=== PATIENT | female | born 1990 | race African-American/Black ===

== ENCOUNTER 2024-01-19 17:33 | Emergency (ER) | payer BC, SELFPAY ==
[2024-01-19 18:12] VITALS: BP 120/83; PULSE 99; RESP 16; TEMP 36.3; O2SAT 100
--- NOTE | 2024-01-19 18:15 | ED.ABDPAIN ---
HPI - Abdominal Pain General Chief Complaint: Abdominal Pain Stated Complaint: abdominal pain Focused HPI: GENERAL: Well-appearing, well-nourished, and in no acute distress. HEAD: Normocephalic, atraumatic. CHEST: Clear to auscultation. No respiratory distress. HEART: Regular rate and rhythm. NEURO: Alert and oriented x3. Patient screened in triage and initial orders placed. Additional care and disposition to be based upon diagnostic testing and treatment. 33-year-old female who is 10 weeks , , IVF patient of Dr. Berumen presents to the emergency room via EMS for evaluation of acute onset of cough of periumbilical belly pain. Denies any vaginal bleeding. States the pain is sharp cramping sensation. States the pain is changing locations within the abdomen. States will be around aggravates the pain. Denies any nausea vomiting diarrhea or constipation. Currently taking vitamins and progesterone IM injections daily. Denies fevers. Has had recent ultrasound which showed normal growth and subchorionic hemorrhage Related Data Home Medications Medication Instructions Recorded Confirmed dorzolamide 2 % eye drops drp EACH EYE 03/29/23 01/17/24 doxylamine succinate 25 mg tablet 25 mg PO QHS PRN 01/17/24 01/17/24 (Unisom (doxylamine)) progesterone 50 mg/mL 5 mg IM DAILY 01/17/24 01/17/24 intramuscular oil pyridoxine (vitamin B6) 10 mg 10 mg PO DAILY 01/17/24 01/17/24 tablet Allergies Allergy/AdvReac Type Severity Reaction Status Date / Time No Known Allergies Allergy Verified 01/17/24 10:10 [facility] Past Medical History Medical History (Updated 02/08/24 @ 09:41 by Haroldo Sellers, CARMEN) Abnormal Pap smear of cervix Suppression of menses Vision impairment Surgical History Surgical History H/O breast augmentation Hx of cholecystectomy Social History Social History Smoking status: Never smoker Alcohol intake: current Alcohol use details: occasional Substance use: never Lack of Transportation: No Lack of Food: Never True Current Housing: I Have Housing Concerned About Future Housing: No Difficulty Paying Gas/Electric Bills: No Difficulty Paying for Meds: No Currently Unemployed: No Education: High School Diploma/GED Difficulty w/ Childcare or Family Care: No Living arrangements: with family Occupation/Education: unemployed Gender identity (if verbalized by the patient): Female Sexual Orientation (if Verbalized by the Patient): Straight or Heterosexual Course Vital Signs Vital signs: Vital Signs Temperature 36.3 C L 01/19/24 18:12 Pulse Rate 99 01/19/24 18:12 Respiratory Rate 16 01/19/24 18:12 Blood Pressure 120/83 01/19/24 18:12 Pulse Oximetry 100 01/19/24 18:12 Oxygen Delivery Room Air 01/19/24 18:12 Temperature 36.3 C L 01/19/24 18:12 Pulse Rate 99 01/19/24 18:12 Respiratory Rate 16 01/19/24 18:12 Blood Pressure 120/83 01/19/24 18:12 Pulse Oximetry 100 01/19/24 18:12 Oxygen Delivery Room Air 01/19/24 18:12 Discharge Plan Discharge Clinical Impression: Abdominal pain affecting Patient Disposition: Elopement After Seen by Prov Condition: Stable Instructions: Antibiotic Form Prescriptions: No Action dorzolamide 2 % drops EACH EYE progesterone 50 mg/mL oil 5 mg IM DAILY Unisom (doxylamine) 25 mg tablet 25 mg PO QHS PRN pyridoxine (vitamin B6) 10 mg tablet 10 mg PO DAILY metoclopramide HCl [Reglan] 5 mg tablet 5 mg PO DAILY Qty: 30 1RF Classic 28 mg iron- 800 mcg tablet 1 tablet PO DAILY Qty: 90 3RF Follow-up/Referrals: UNKNOWN,DOCTOR [Non-Staff] - Time of Disposition: 09:41
--- NOTE | 2024-01-19 20:00 | PC.NURSE ---
Pt came to triage desk requesting to get IV out and leave hospital. Pts IV pulled and pt educated on risks of leaving. Pt ambulated out of ed with steady gait displaying no signs of current discomfort or distress.
== END 2024-01-19 21:09 | disposition left against medical advice (07) ==
LOC: ANHED 20:55
PROVIDERS: Emergency Provider Nurse Practitioner Family
DX: O26.891 Other specified pregnancy related conditions, first trimester (principal); R10.33 Periumbilical pain; Z3A.10 10 weeks gestation of pregnancy; Z90.49 Acquired absence of other specified parts of digestive tract
CPT/HCPCS: 99281

== ENCOUNTER 2024-04-06 12:40 | Observation (INO) | payer BC, SELFPAY ==
[2024-04-06 13:06] VITALS: BP 106/61; PULSE 92
[2024-04-06 13:30] VITALS: BP 95/51; PULSE 92
[2024-04-06 13:37] LABS: Appearance Urine Cloudy (Clear); Bacteria Urine None Seen /hpf; Bilirubin Urine Negative (Negative); Blood Urine Negative (Negative); Color Urine Yellow (Yellow); Glucose Urine UA Negative (Negative); Ketones Urine Negative (Negative); Leukocyte Esterase Ur 1+ LEU/UL (Negative); Need Manual Microscopic Reviewed; Nitrate Urine Negative (Negative); Non Pathogenic Casts 0-2; Protein Urine Negative (Negative); RBC Urine 0-2 /hpf (0-2); Specific Grav Ur 1.018 (1.001-1.035); Squamous Epithelial Cell Urine Occasional /hpf (Few); WBC Urine 0-5 /hpf (0-3); pH Urine 7.5 (5.0-9.0)
[2024-04-06 13:47] LABS: Add Urine Microscopic? YES
--- NOTE | 2024-04-06 13:54 | OBADM ---
This patient, Luana Winters, admitted to the OB room OB Post 115 for observation. Patient/family oriented to hospital policies and general routines including ID bracelet, bed and alarms, visiting hours, pain management, procedures, bathroom and other care routines, personal items, smoking policy, room service/diet, and visiting hours. Patient/Family are encouraged to report perceived risks to care and to ask questions if they do not understand what they are told or what they should do.
[2024-04-06 14:09] LABS: Basophils Percent Auto 0.3 % (0.2-1.2); Eosinophils Percent Auto 0.4 % (0-4.4); Hematocrit 31.4 % (37.0-47.0); Hemoglobin 10.3 g/dL (12.0-15.0); Immature Granulocyte Absolute 0.03 K/mm3 (0.00-0.031); Immature Granulocyte Percent A 0.4 % (0-0.5); Lymphocytes Absolute Auto 1.26 K/mm3 (0.9-3.2); Lymphocytes Percent Auto 17.5 % (18.3-44.2); Mean Corpuscular HGB Conc 32.8 g/dl (32-36); Mean Corpuscular Hemoglobin 27.3 pg (26-34); Mean Corpuscular Volume 83.3 fl (80-100); Mean Platelet Volume 9.6 fl (7.4-10.4); Monocytes Absolute Auto 0.6 K/mm3 (0.1-0.6); Monocytes Percent Auto 7.8 % (2.6-8.5); Neutrophils Absolute Auto 5.3 K/mm3 (1.3-6.7); Neutrophils Percent Auto 73.6 % (45.5-73.1); Platelet Count Result 274 k/mm3 (150-375); Red Blood Count 3.77 M/mm3 (4.2-5.4); White Blood Count 7.2 K/mm3 (4.5-10.0)
[2024-04-06] MEDS: LACTATED RINGERS 1,000 ML 999 ML IV CONT (14:10)
--- NOTE | 2024-04-06 14:11 | PC.NURSE ---
Dr. Lynne performed bedside speculum exam. No discharge, cervix closed, thick and high. Order for labs and IV fluids received.
[2024-04-06 14:22] LABS: Alanine Aminotransferase 14 U/L (6-35); Alkaline Phosphatase 48 U/L (38-126); Anion Gap 5 mmol/L (4-12); Aspartate Amino Transferase 28 U/L (14-36); Bilirubin,Total 0.8 mg/dL (0.2-1.3); Blood Urea Nitrogen 8 mg/dL (7-17); Calcium 9.3 mg/dL (8.4-10.2); Carbon Dioxide 23 mmol/L (22-30); Chloride 109 mmol/L (98-107); Estimated Glomerular Filt Rate > 60; Glucose 78 mg/dL (65-110); Potassium 4.1 mmol/L (3.4-5.0); Sodium 137 mmol/L (137-145)
[2024-04-06 14:30] VITALS: BP 104/63; PULSE 94
[2024-04-06 15:00] VITALS: BP 118/59; PULSE 91
--- NOTE | 2024-04-09 11:54 | P.PNOB_ITS ---
OB - Triage/Final Diagnosis Visit Information Comments/Additional reasons for admission: I have assessed the risk for this patient, Luana Winters, and determined that she would benefit from observation care. Evaluation Laboratory results: Laboratory Tests 04/06/24 04/06/24 13:20 14:05 WBC 7.2 RBC 3.77 L Hgb 10.3 L Hct 31.4 L MCV 83.3 MCH 27.3 MCHC 32.8 RDW 13.0 Plt Count 274 MPV 9.6 Immature Gran % (Auto) 0.4 Neut % (Auto) 73.6 H Lymph % (Auto) 17.5 L [place] % (Auto) 7.8 Eos % (Auto) 0.4 Baso % (Auto) 0.3 Lymph # (Auto) 1.26 [place] # (Auto) 0.6 Eos # (Auto) 0.0 Baso # (Auto) 0.0 Abs Immat Gran (auto) 0.03 Absolute Neuts (auto) 5.3 Absolute Nucleated RBC 0.000 Nucleated RBC % 0.0 Sodium 137 Potassium 4.1 Chloride 109 H Carbon Dioxide 23 Anion Gap 5 BUN 8 Creatinine 0.60 L Estim Creat Clear Calc Not Reportable Estimated GFR > 60 Glucose 78 Calcium 9.3 Total Bilirubin 0.8 AST 28 ALT 14 Alkaline Phosphatase 48 Total Protein 7.0 Albumin 4.0 Urine Color Yellow Urine Appearance Cloudy H Urine pH 7.5 Ur Specific [place] 1.018 Urine Protein Negative Urine Glucose (UA) Negative Urine Ketones Negative Ur Blood (Man) Negative Urine Nitrate Negative Urine Bilirubin Negative Urine Urobilinogen 2.0 H Add Ur Microanalysis Reviewed Leukocyte Esterase Rfl 1+ H Urine RBC 0-2 Urine WBC 0-5 Ur Squamous Epith Cells Occasional Urine Bacteria None seen Urine Casts 0-2 Final Diagnosis (1) contractions: Code(s): O47.00 - False labor before 37 completed weeks of gestation, unspecified tri mester Status: Acute
== END 2024-04-06 17:00 | disposition home or self-care (01) ==
PROVIDERS: Admitting Provider Obstetrics & Gynecology; Visit Provider Obstetrics & Gynecology
DX: O47.02 False labor before 37 completed weeks of gestation, second trimester (principal); Z3A.21 21 weeks gestation of pregnancy
CPT/HCPCS: 36415; 80053; 81001; 85025; G0378; G0379; J7120

== ENCOUNTER 2024-05-21 09:54 | Outpatient (CLI) | payer MEDICARE, BC, SELFPAY ==
[2024-05-21 11:22] LABS: Hematocrit 28.7 % (37.0-47.0); Hemoglobin 8.7 g/dL (12.0-15.0); Mean Corpuscular HGB Conc 30.3 g/dl (32-36); Mean Corpuscular Hemoglobin 26.1 pg (26-34); Mean Corpuscular Volume 86.2 fl (80-100); Mean Platelet Volume 9.4 fl (7.4-10.4); Platelet Count Result 242 k/mm3 (150-375); Red Blood Count 3.33 M/mm3 (4.2-5.4); Red Cell Distribution Width 12.7 % (11.5-14.5); White Blood Count 6.8 K/mm3 (4.5-10.0)
[2024-05-21 11:37] LABS: Glucose 1 Hour PP 50gm Dose 113 mg/dL
[2024-05-21 12:16] LABS: HIV 1/2 Ab P24 Ag Result Negative (Negative)
[2024-05-21 13:24] LABS: Rapid Plasma Reagin Non-Reactive (NonReactive)
== END 2024-05-21 09:55 | disposition home or self-care (01) ==
LOC: ANHLAB 09:57
PROVIDERS: Visit Provider Student in an Organized Health Care Education/Training Program
DX: Z34.90 Encounter for supervision of normal pregnancy, unspecified, unspecified trimester (principal); Z3A.00 Weeks of gestation of pregnancy not specified
CPT/HCPCS: 36415; 82947; 85027; 86592; 86703; G0432

== ENCOUNTER 2024-05-22 18:04 | Observation (INO) | payer BC, SELFPAY ==
[2024-05-22] VITALS (40 sets, daily range): BP systolic 97–141; BP diastolic 60–69; PULSE 76–104; TEMP 36.8; O2SAT 99–100; BMI 24.7
--- NOTE | 2024-05-22 18:04 | PC.NURSE ---
Pt arrives to unit with contractions.
--- NOTE | 2024-05-22 18:24 | OBADM ---
This patient, Luana Winters, admitted to the OB room OB Post 116 for observation. Patient/family oriented to hospital policies and general routines including ID bracelet, bed and alarms, visiting hours, pain management, procedures, bathroom and other care routines, personal items, smoking policy, room service/diet, and visiting hours. Patient/Family are encouraged to report perceived risks to care and to ask questions if they do not understand what they are told or what they should do.
--- NOTE | 2024-05-22 19:29 | PC.NURSE ---
Dr. Villalobos called, update on pt, contractions every two to four minutes, uterine irritability, and pain of 10. Orders received to start an IV, administer LR bolus 1 liter, terbutaline 0.25 mg as needed up to three doses, and perform cervical exam.
--- NOTE | 2024-05-22 19:55 | PC.NURSE ---
Called Dr. Villalobos, update on low lying placenta and pelvic rest. Orders received to not perform cervical exam.
[2024-05-22] MEDS: TERBUTALINE SULFATE 1 MG/ML VIAL 0.25 MG SUB-Q (19:56)
[2024-05-22] MEDS: LACTATED RINGERS 1,000 ML 999 ML IV CONT (19:57)
--- NOTE | 2024-05-22 20:43 | PC.NURSE ---
Dr. Villalobos called, update on two contractions in the hour after one dose of terbutaline and LR bolus. Orders received to discharge pt with instructions to call Dr. Bhagat's office tomorrow, keep next scheduled appointment, and when to return to the unit.
--- NOTE | 2024-05-22 21:23 | PC.NURSE ---
Pt discharged with instructions to call Dr. Bhagat's office tomorrow, keep next scheduled appointment, and when to return to the unit with pre-term labor precautions, pt verbalizes understanding.
--- NOTE | 2024-05-23 10:42 | PM.OBTRLD ---
OB - Triage/Final Diagnosis Visit Information Reason for evaluation: threatened labor Comments/Additional reasons for admission: I have assessed the risk for this patient, Luana Winters, and determined that she would benefit from observation care. Evaluation Vital signs: Vital Signs - 24 hr 05/22/24 18:16 05/22/24 18:21 05/22/24 18:26 Temperature Pulse Rate Blood Pressure Blood Pressure [Left Arm] Pulse Oximetry 100 100 100 Oxygen Delivery 05/22/24 18:31 05/22/24 18:36 05/22/24 18:42 Temperature Pulse Rate 93 Blood Pressure 97/60 L Blood Pressure [Left Arm] Pulse Oximetry 100 100 100 Oxygen Delivery 05/22/24 18:47 05/22/24 18:52 05/22/24 18:57 Temperature Pulse Rate Blood Pressure Blood Pressure [Left Arm] Pulse Oximetry 100 100 100 Oxygen Delivery 05/22/24 19:00 05/22/24 19:02 05/22/24 19:07 Temperature Pulse Rate 86 Blood Pressure 103/67 Blood Pressure [Left Arm] Pulse Oximetry 100 100 Oxygen Delivery 05/22/24 19:12 05/22/24 19:17 05/22/24 19:22 Temperature Pulse Rate Blood Pressure Blood Pressure [Left Arm] Pulse Oximetry 100 100 100 Oxygen Delivery 05/22/24 19:27 05/22/24 19:30 05/22/24 19:31 Temperature Pulse Rate 87 Blood Pressure 102/62 Blood Pressure [Left Arm] Pulse Oximetry 100 100 Oxygen Delivery 05/22/24 19:36 05/22/24 19:37 05/22/24 19:38 Temperature Pulse Rate Blood Pressure Blood Pressure [Left Arm] Pulse Oximetry 100 100 100 Oxygen Delivery 05/22/24 19:43 05/22/24 19:51 05/22/24 19:56 Temperature Pulse Rate Blood Pressure Blood Pressure [Left Arm] Pulse Oximetry 100 100 100 Oxygen Delivery 05/22/24 20:00 05/22/24 20:01 05/22/24 20:05 Temperature Pulse Rate 93 Blood Pressure 141/69 H Blood Pressure [Left Arm] Pulse Oximetry 100 100 Oxygen Delivery 05/22/24 20:10 05/22/24 20:15 05/22/24 20:20 Temperature Pulse Rate Blood Pressure Blood Pressure [Left Arm] Pulse Oximetry 100 100 100 Oxygen Delivery 05/22/24 20:25 05/22/24 20:30 05/22/24 20:35 Temperature Pulse Rate Blood Pressure Blood Pressure [Left Arm] Pulse Oximetry 100 100 99 Oxygen Delivery 05/22/24 20:36 05/22/24 20:36 05/22/24 20:41 Temperature Pulse Rate Blood Pressure Blood Pressure [Left Arm] Pulse Oximetry 100 100 100 Oxygen Delivery 05/22/24 20:46 05/22/24 20:51 05/22/24 20:56 Temperature Pulse Rate Blood Pressure Blood Pressure [Left Arm] Pulse Oximetry 100 100 100 Oxygen Delivery 05/22/24 20:53 05/22/24 18:21 05/22/24 20:59 Temperature 98.3 F Pulse Rate 94 Blood Pressure Blood Pressure [Left Arm] 97/60 L Pulse Oximetry Oxygen Delivery Room Air
== END 2024-05-22 21:23 | disposition home or self-care (01) ==
PROVIDERS: Admitting Provider Obstetrics & Gynecology; Visit Provider Obstetrics & Gynecology
DX: O47.9 False labor, unspecified (principal)
CPT/HCPCS: 59025; 96360; 96372; G0378; G0379; J3105; J7120

== ENCOUNTER 2024-06-07 09:01 | Outpatient (CLI) | payer BC, SELFPAY ==
--- NOTE | ~2024-06-07 | US_ITS ---
EXAMINATION: US OB follow up DATE: 06/07/2024 09:20 INDICATION: Encounter for supervision of normal . TECHNIQUE: Real-time ultrasound of the pelvis was performed. COMPARISON: Ultrasound 04/25/2024, 03/28/2024 FINDINGS: There is a single living fetus in breech presentation. The placenta is posterior, 4.5 cm from the ce rvix. The cervical length is 4.8 cm on transabdominal images, which is normal. heart rate is 12 7 beats per minute (bpm). The amniotic fluid index is 16.2 cm, which is normal. The following biometric data were obtained: Biparietal diameter (BPD): 8.2 cm; head circumference (HC): 29.0 cm; abdominal circumference (AC): 27 .4 cm; femur length (FL): 6.0 cm. These measurements are concordant. Estimated weight is 1790 g +/- 269 g, which correlates with the 81st percentile when 08/14/24 i s used as estimated date of delivery. As single measurements, these parameters are each equal to the following estimated gestational ages: BPD: 32 weeks 6 days. HC: 31 weeks 6 days. AC: 31 weeks 4 days. FL: 31 weeks 1 days. estimated gestational age based solely on measurements from this exam is 31 weeks 6 days +/- 2 weeks 2 days. IMPRESSION: 1. Single living fetus in breech presentation. 2. Estimated weight is 1790 g +/- 269 g, which correlates with the 81st percentile when is used as estimated date of delivery. Reviewed, dictated and finalized at location A. IMPRESSION: 1. Single living fetus in breech presentation. 2. Estimated weight is 1790 g +/- 269 g, which correlates with the 81st percentile when 08/14/24 is used as estimated date of delivery.
== END 2024-06-07 09:02 | disposition home or self-care (01) ==
LOC: GOSHIMG 09:02
PROVIDERS: PCP Student in an Organized Health Care Education/Training Program; Visit Provider Student in an Organized Health Care Education/Training Program
DX: Z34.93 Encounter for supervision of normal pregnancy, unspecified, third trimester (principal); Z3A.31 31 weeks gestation of pregnancy
CPT/HCPCS: 76816

== ENCOUNTER 2024-07-09 16:14 | Observation (INO) | payer MEDICARE, BC, SELFPAY ==
[2024-07-09 16:30] VITALS: BMI 26.3
--- NOTE | 2024-07-09 16:30 | OBADM ---
This patient, Luana Winters, admitted to the OB room OB Post 113 for observation. Patient/family oriented to hospital policies and general routines including ID bracelet, bed and alarms, visiting hours, pain management, procedures, bathroom and other care routines, personal items, smoking policy, room service/diet, and visiting hours. Patient/Family are encouraged to report perceived risks to care and to ask questions if they do not understand what they are told or what they should do.
[2024-07-09 16:45] VITALS: BP 96/45; PULSE 89
[2024-07-09 17:00] VITALS: BP 105/67; PULSE 87
[2024-07-09 17:52] LABS: Add Urine Microscopic? YES; Appearance Urine Cloudy (Clear); Bacteria Urine None Seen /hpf; Bilirubin Urine Negative (Negative); Blood Urine Negative (Negative); Color Urine Yellow (Yellow); Glucose Urine UA Negative (Negative); Ketones Urine Negative (Negative); Leukocyte Esterase Ur Negative LEU/UL (Negative); Need Manual Microscopic Reviewed; Nitrate Urine Negative (Negative); Non Pathogenic Casts 0-2; Protein Urine Negative (Negative); RBC Urine 0-2 /hpf (0-2); Specific Grav Ur 1.013 (1.001-1.035); Squamous Epithelial Cell Urine None Seen /hpf (Few); WBC Urine 0-5 /hpf (0-3)
--- NOTE | 2024-07-09 17:55 | PC.NURSE ---
Dr Lynne notified of SVE and US results. OK to al home.
--- NOTE | 2024-07-10 08:06 | PM.OBTRLD ---
OB - Triage/Final Diagnosis Visit Information Comments/Additional reasons for admission: I have assessed the risk for this patient, Luana Winters, and determined that she would benefit from observation care. Evaluation Laboratory results: Laboratory Tests 07/09/24 17:14 Urine Color Yellow Urine Appearance Cloudy H Urine pH 7.0 Ur Specific [place] 1.013 Urine Protein Negative Urine Glucose (UA) Negative Urine Ketones Negative Ur Blood (Man) Negative Urine Nitrate Negative Urine Bilirubin Negative Urine Urobilinogen 1.0 Ur Leukocyte Esterase Negative Add Ur Microanalysis Reviewed Urine RBC 0-2 Urine WBC 0-5 Ur Squamous Epith Cells None seen Urine Bacteria None seen Urine Casts 0-2 Vital signs: Vital Signs - 24 hr 07/09/24 16:45 07/09/24 17:00 Pulse Rate 89 87 Blood Pressure 96/45 L 105/67 Final Diagnosis (1) Vaginal discharge during : Code(s): O26.899 - Other specified related conditions, unspecified trimester; N89.8 - Other specified noninflammatory disorders of vagina Status: Acute
== END 2024-07-09 18:07 | disposition home or self-care (01) ==
PROVIDERS: Admitting Provider Obstetrics & Gynecology; Visit Provider Obstetrics & Gynecology
DX: O26.893 Other specified pregnancy related conditions, third trimester (principal); N89.8 Other specified noninflammatory disorders of vagina; Z3A.35 35 weeks gestation of pregnancy
CPT/HCPCS: 81001; 87086; 87088; G0378; G0379

== ENCOUNTER 2024-07-23 11:38 | Outpatient (CLI) | payer BC, SELFPAY ==
--- NOTE | ~2024-07-23 | US_ITS ---
EXAMINATION: US OB follow up DATE: 07/23/2024 12:05 INDICATION: Encounter for supervision of normal TECHNIQUE: Real-time ultrasound of the pelvis was performed. The interpreting radiologist was not pre sent for the study. COMPARISON: 06/07/2024 FINDINGS: There is a single living fetus in vertex presentation. The placenta is posterior fundal and not low- lying. heart rate is 124 beats per minute (bpm). The amniotic fluid index is 10.5 cm, which is normal (5th%-95%: 7.7-24.9 cm at 36 weeks estimated gestational age). The following biometric data were obtained: BPD: 9.1 cm -> 36 weeks 5 days Head circumference: 31. cm -> 936 weeks 0 days Abdominal circumference: 33.0 cm -> 36 weeks 6 days Femur length: 7.1 cm -> 36 weeks 1 days These measurements are concordant. Head circumference to abdominal circumference ratio: 0.97 (normal range 0.92-1.07). Estimated weight: 2981 g (+/-) 447 g or 6 lbs. 9 oz. (+/-) 1 lb. 0 oz. IMPRESSION: 1. Single living fetus in vertex presentation with heart rate of 124 bpm. 2. Normal amniotic fluid index of 10.5 cm. 3. Estimated weight is 48th percentile by Hadlock criteria when 08/14/2024 is used as the estim ated date of delivery (DANIELLA). Please correlate with clinical information or earlier ultrasounds for mo st accurate DANIELLA. Reviewed, dictated and finalized at location A. IMPRESSION: 1. Single living fetus in vertex presentation with heart rate of 124 bpm. 2. Normal amniotic fluid index of 10.5 cm. 3. Estimated weight is 48th percentile by Hadlock criteria when 4 is used as the estimated date of delivery (DANIELLA). Please correlate with clinic al information or earlier ultrasounds for most accurate DANIELLA.
== END 2024-07-23 11:39 | disposition home or self-care (01) ==
PROVIDERS: PCP Student in an Organized Health Care Education/Training Program; Visit Provider Student in an Organized Health Care Education/Training Program
DX: Z34.90 Encounter for supervision of normal pregnancy, unspecified, unspecified trimester (principal); Z3A.00 Weeks of gestation of pregnancy not specified
CPT/HCPCS: 76816

== ENCOUNTER 2024-07-23 12:30 | Outpatient (RCR) | payer BC, SELFPAY ==
--- NOTE | 2024-05-21 13:14 | OPREHPOC ---
Outpatient Therapy Plan of Care This is a Multidisciplinary Plan of Care that may contain components documented by all disciplines (PT, OT, and ST.) PT Problem 1 PT Problem #1 Knowledge Deficit PT Goal 1 Goal / Goal Update 1. Patient will perform independent HEP Target Visit 3 PT Problem 2 PT Problem #2 Pain PT Goal 1 Goal / Goal Update 1. Patient able to stand to clean with pain no higher than 3/10 Target Visit 8 PT Problem 3 PT Problem #3 Impaired Strength PT Goal 1 Goal / Goal Update 1. Improve hip abduction to 5/5 jim Target Visit 8 PT Problem 4 PT Problem #4 Impaired Flexibility PT Goal 1 Goal / Goal Update 1. No positive lumbar neural tension signs Target Visit 8
--- NOTE | 2024-05-21 13:14 | PTOPEVAL1 ---
Assessment and note entered by Margarita Shaw DPT Evaluation Information Assessment Status Evaluation ICD-10 Condition Codes (PT) Pain in low back M54.50,M54.16 Other ICD-10 Condition Codes ( m54.9, o99.891 PT) Subjective Information Pt has been diagnosed with sciatica and has pain into her hips and leg. Has had difficulty with standing with weight on both legs. Pain is mostly on the right. Pt is 28 weeks . Pain started a few weeks ago. Highest pain recently and lowest /10. Denies n/t. Radiates down to knee. Difficulty sleeping due to pain and having trouble cooking and cleaning due to difficulty standing on her leg. Pt is not working currently. This is patient's 4th , no previous issues. Patient goal: relieve the pain Returns to MD in June. Reported Pain Level Pain Score 4: Self Report Assessment PT Clinical Summary The patient is presenting to skilled therapy at 28 weeks with bilateral radiating low back pain R>L. She presents with decreased hip strength and signs of neural tension which are contributing to her pain and difficulty with standing tasks. She will highly benefit from therapy to address these impairments in order to reduce pain and improve function as her progresses. Plan of Care Interventions Hot Pack/Cold Pack,Manual Therapy,Neuro Re- education,Patient/Caregiver Education,Therapeutic Activities,Therapeutic Exercise PT Services Indicated Yes Treatment Frequency and 1-2 times a week for 8 visits Duration These treatments will address the objective and functional deficits as defined above. The patient will be advanced safely and appropriately in order for the patient to progress towards his/her prior level of function. Additional exercises will be introduced and as well as a comprehensive home exercise program upon discharge, if needed, ?to ensure carryover of functional gains achieved in the clinic. This treatment plan has been reviewed and agreement upon by the patient.
--- NOTE | 2024-06-11 12:54 | PCPTNOTE ---
Patient did not show up for appointment on 06/11/24. When called, patient stated she forgot and will be in on Tuesday.
--- NOTE | 2024-06-20 10:11 | PCPTNOTE ---
Patient called to cancel due to needing to get an MRI
--- NOTE | 2024-07-02 13:10 | OPREHPOC ---
Outpatient Therapy Plan of Care This is a Multidisciplinary Plan of Care that may contain components documented by all disciplines (PT, OT, and ST.) PT Problem 1 PT Problem #1 Knowledge Deficit PT Goal 1 Goal / Goal Update 1. Patient will perform independent HEP Target Visit 3 Progress Met PT Problem 2 PT Problem #2 Pain PT Goal 1 Goal / Goal Update 1. Patient able to stand to clean with pain no higher than 3/10 Target Visit 12 Progress Partially Met PT Problem 3 PT Problem #3 Impaired Strength PT Goal 1 Goal / Goal Update 1. Improve hip abduction to 5/5 jim Target Visit 12 Progress Partially Met PT Problem 4 PT Problem #4 Impaired Flexibility PT Goal 1 Goal / Goal Update 1. No positive lumbar neural tension signs Target Visit 8
--- NOTE | 2024-07-02 13:10 | PTOPPROG ---
Assessment and note entered by Margarita Shaw DPT Evaluation Information Assessment Status Progress ICD-10 Condition Codes (PT) Pain in low back M54.50,M54.16 Other ICD-10 Condition Codes ( m54.9, o99.891 PT) Subjective Information Overall feels better since starting therapy. Pain has improved. Highest pain recently 6/10 and lowest 0/10. Pain continues to radiate down legs at times. Thinks she is noticing some improvements in her ability to sleep due to pain and to cook and clean. Assessment PT Clinical Summary The patient has made good progress in therapy and reports overall decreased pain. She reports improvements with sleeping and cooking/cleaning. She also demonstrates improved hip strength. Due to her progress but continued pain, she will benefit from further therapy to reduce pain and improve function until she delivers. Plan of Care Interventions Hot Pack/Cold Pack,Manual Therapy,Neuro Re- education,Patient/Caregiver Education,Therapeutic Activities,Therapeutic Exercise PT Services Indicated Yes Treatment Frequency and 1 time a week for 4 visits Duration These treatments will address the objective and functional deficits as defined above. The patient will be advanced safely and appropriately in order for the patient to progress towards his/her prior level of function. Additional exercises will be introduced and as well as a comprehensive home exercise program upon discharge, if needed, ?to ensure carryover of functional gains achieved in the clinic. This treatment plan has been reviewed and agreement upon by the patient.
--- NOTE | 2024-07-11 12:51 | PCPTNOTE ---
Patient called to reschedule appointment from 07/11/24 to 07/13/24 due to personal conflict.
--- NOTE | 2024-07-30 13:08 | PCPTNOTE ---
Pt did not show up for appointment 07/30/24.
--- NOTE | 2024-08-13 15:48 | PTOPDC ---
Assessment and note entered by Margarita Shaw DPT Evaluation Information Assessment Status Discharge - Pt Not Present ICD-10 Condition Codes (PT) Pain in low back M54.50,M54.16 Other ICD-10 Condition Codes ( m54.9, o99.891 PT) Subjective Information - Assessment PT Clinical Summary The patient has likely delivered baby and she will be discharged this date. Plan of Care PT Services Indicated No
== END 2024-08-13 15:59 | disposition home or self-care (01) ==
LOC: ANHGOSHPT 12:30
PROVIDERS: Visit Provider Student in an Organized Health Care Education/Training Program
DX: O99.891 Other specified diseases and conditions complicating pregnancy (principal); M54.9 Dorsalgia, unspecified; M54.30 Sciatica, unspecified side; Z3A.00 Weeks of gestation of pregnancy not specified
CPT/HCPCS: 97110; 97112; 97140; 97161; 97530

== ENCOUNTER 2024-08-08 00:01 | Inpatient (IN) | payer BC, SELFPAY ==
[2024-08-08] VITALS (282 sets, daily range): BP systolic 67–148; BP diastolic 42–101; PULSE 27–229; RESP 16–20; TEMP 36.5–37.7; O2SAT 73–100; BMI 25.9
--- NOTE | 2024-08-08 00:35 | LDADM ---
This patient, Luana Winters, was admitted to Labor/Delivery/Recovery 108 on 08/08/24 at 00:01. Plans for labor, pain management and were discussed with patient. Patient/family oriented to hospital policies and general routines including ID bracelet, bed and alarms, visiting hours, pain management, procedures, bathroom and other care routines, personal items, smoking policy, room service/diet and guest tray routines, infant security routines, and visiting hours. Patient/Family are encouraged to report perceived risks to care and to ask questions if they do not understand what they are told or what they should do. See [facility]BIX for further documentation.
[2024-08-08] MEDS: miSOPROStol 25 MCG TABLET VAGINAL (00:45)
[2024-08-08 01:10] LABS: Basophils Percent Auto 0.1 % (0.2-1.2); Eosinophils Percent Auto 0.6 % (0-4.4); Hematocrit 37.2 % (37.0-47.0); Immature Granulocyte Absolute 0.07 K/mm3 (0.00-0.031); Lymphocytes Absolute Auto 1.53 K/mm3 (0.9-3.2); Lymphocytes Percent Auto 22.1 % (18.3-44.2); Mean Corpuscular HGB Conc 32.3 g/dl (32-36); Mean Corpuscular Hemoglobin 27.3 pg (26-34); Mean Corpuscular Volume 84.5 fl (80-100); Mean Platelet Volume 9.9 fl (7.4-10.4); Monocytes Absolute Auto 0.7 K/mm3 (0.1-0.6); Neutrophils Absolute Auto 4.6 K/mm3 (1.3-6.7); Neutrophils Percent Auto 66.2 % (45.5-73.1); Platelet Count Result 232 k/mm3 (150-375); Red Cell Distribution Width 16.6 % (11.5-14.5); White Blood Count 6.9 K/mm3 (4.5-10.0)
[2024-08-08 01:42] LABS: HIV 1/2 Ab P24 Ag Result Negative (Negative)
[2024-08-08] MEDS: OXYTOCIN 30 UNITS/NS 500 ML 30 UNITS/500 ML BAG IV CONT (06:49)
[2024-08-08] MEDS: LACTATED RINGERS 1,000 ML 125 ML IV CONT ×3 (06:49→12:52)
--- NOTE | 2024-08-08 07:17 | P.PNAN_ITS ---
Anes - Eval Pre Procedure Procedure: labor epidural Date/Time: 08/08/24 07:17 Preop Diagnosis: pain during labor Pre Op Diagnosis: IOL Patient Data Age: 34 Gender: F Height: 1.7 m Weight: 75 kg Last Vital Signs Temp 36.8 C 08/08/24 04:44 Pulse 68 08/08/24 07:09 BP 107/68 08/08/24 07:09 Pulse Ox 100 08/08/24 07:16 O2 Del Method Room Air 08/08/24 00:35 Allergies Allergy/AdvReac Type Severity Reaction Status Date / Time No Known Allergies Allergy Verified 08/07/24 10:36 Home Medications Medication Instructions Recorded Confirmed Type dorzolamide 2 % eye drops drp EACH EYE 03/29/23 08/07/24 History vits no.126-ferrous fum 1 tablet PO DAILY #90 tabs 01/30/24 08/07/24 Rx 28 mg iron-folic acid 800 mcg tablet (Classic ) multivitamin with iron (Daily 1 tablet PO DAILY 06/18/24 08/07/24 History Vitamin with Iron tablet) Laboratory Tests 08/08/24 00:39 WBC 6.9 K/mm3 (4.5-10.0) RBC 4.40 M/mm3 (4.2-5.4) Hgb 12.0 D g/dL (12.0-15.0) Hct 37.2 % (37.0-47.0) MCV 84.5 fl (80-100) MCH 27.3 pg (26-34) MCHC 32.3 g/dl (32-36) RDW 16.6 H % (11.5-14.5) Plt Count 232 k/mm3 (150-375) MPV 9.9 fl (7.4-10.4) Immature Gran % (Auto) 1.0 H % (0-0.5) Neut % (Auto) 66.2 % (45.5-73.1) Lymph % (Auto) 22.1 % (18.3-44.2) Lee % (Auto) 10.0 H % (2.6-8.5) Eos % (Auto) 0.6 % (0-4.4) Baso % (Auto) 0.1 L % (0.2-1.2) Lymph # (Auto) 1.53 K/mm3 (0.9-3.2) Lee # (Auto) 0.7 H K/mm3 (0.1-0.6) Eos # (Auto) 0.0 K/mm3 (0-0.3) Baso # (Auto) 0.0 K/mm3 (0.0-0.1) Abs Immat Gran (auto) 0.07 H K/mm3 (0.00-0.031) Absolute Neuts (auto) 4.6 K/mm3 (1.3-6.7) Absolute Nucleated RBC 0.000 K/mm3 (0.0-0.012) Nucleated RBC % 0.0 % (0.0-0.2) RPR Pending HIV 1&2 Ab/P24 Ag 4thGn Negative (Negative) Blood Type O Positive Antibody Screen Negative Patient hx anesthesia problems: none Family hx anesthesia problems: none Results Review: All pre-operative results and documents have been reviewed as part of the pre- operative evaluation. [facility] Past Medical History Medical History Abnormal Pap smear of cervix Suppression of menses Vision impairment Surgical History Surgical History H/O breast augmentation Hx of cholecystectomy Social History Social History Smoking status: Never smoker Alcohol intake: current Alcohol use details: occasional Substance use: never Do You Feel Safe in your Home?: Yes Lack of Transportation: No Lack of Food: Never True Current Housing: I Have Housing Concerned About Future Housing: No Difficulty Paying Gas/Electric Bills: No Difficulty Paying for Meds: No Currently Unemployed: No Education: Associate Degree Difficulty w/ Childcare or Family Care: No Living arrangements: with family Occupation/Education: unemployed Gender identity (if verbalized by the patient): Female Sexual Orientation (if Verbalized by the Patient): Straight or Heterosexual Spiritual care concerns: No Exam Day of Procedure 08/08/24 07:17 Patient weight: normal Heart: regular rate and rhythm Lungs: normal air movement Airway: Mallampati scale class II Neurological: alert and oriented
[2024-08-08 09:48] LABS: Rapid Plasma Reagin Non-Reactive (NonReactive)
--- NOTE | 2024-08-08 10:44 | PM.IMHP ---
H&P: HPI History of Present Illness Date/Time: 08/08/24 10:44 Chief Complaint: Intrauterine at term Narrative: 34 Year old 013 who presents at 39 weeks 0 days for elective induction of labor. Review of Systems Cardiovascular: Cardiovascular: Denies chest pain, Denies leg edema, Denies palpitations, Denies dyspnea and Denies dyspnea on exertion Respiratory: Respiratory: Denies cough, Denies dyspnea and Denies dyspnea on exertion Gastrointestinal: Gastrointestinal: Denies abdominal pain, Denies constipation, Denies diarrhea, Denies nausea and Denies vomiting Genitourinary: Genitourinary: Denies hematuria, Denies urinary frequency, Denies dysuria, Denies pelvic pain, Denies urinary incontinence and Denies vaginal discharge Neurologic: Reports system reviewed and no additional complaints, except as documented Psychiatric: Psychiatric: Reports no additional psychiatric complaints Endocrine: Endocrine: Denies palpitations PMFSH Past Medical History Medical History Abnormal Pap smear of cervix Suppression of menses Vision impairment Surgical History Surgical History H/O breast augmentation Hx of cholecystectomy Social History Social History Smoking status: Never smoker Alcohol intake: current Alcohol use details: occasional Substance use: never Do You Feel Safe in your Home?: Yes Lack of Transportation: No Lack of Food: Never True Current Housing: I Have Housing Concerned About Future Housing: No Difficulty Paying Gas/Electric Bills: No Difficulty Paying for Meds: No Currently Unemployed: No Education: Associate Degree Difficulty w/ Childcare or Family Care: No Living arrangements: with family Occupation/Education: unemployed Gender identity (if verbalized by the patient): Female Sexual Orientation (if Verbalized by the Patient): Straight or Heterosexual Spiritual care concerns: No Meds Home Medications and Allergies Home Medications Medication Instructions Recorded Confirmed Type dorzolamide 2 % eye drops drp EACH EYE 03/29/23 08/07/24 History vits no.126-ferrous fum 1 tablet PO DAILY #90 tabs 01/30/24 08/07/24 Rx 28 mg iron-folic acid 800 mcg tablet (Classic ) multivitamin with iron (Daily 1 tablet PO DAILY 06/18/24 08/07/24 History Vitamin with Iron tablet) Allergies Allergy/AdvReac Type Severity Reaction Status Date / Time No Known Allergies Allergy Verified 08/07/24 10:36 Vital Signs Vital Signs - 24 hr 08/08/24 00:30 08/08/24 01:00 08/08/24 01:30 Temperature Pulse Rate 94 99 86 Blood Pressure 113/71 107/70 104/73 Pulse Oximetry Oxygen Delivery 08/08/24 02:00 08/08/24 02:30 08/08/24 03:00 Temperature Pulse Rate 80 79 89 Blood Pressure 109/75 101/69 100/63 Pulse Oximetry Oxygen Delivery 08/08/24 03:30 08/08/24 04:00 08/08/24 04:24 Temperature Pulse Rate 87 82 Blood Pressure 91/42 L 99/52 L Pulse Oximetry 99 Oxygen Delivery 08/08/24 04:42 08/08/24 04:44 08/08/24 04:46 Temperature 98.2 F Pulse Rate 73 Blood Pressure 130/69 Pulse Oximetry 100 Oxygen Delivery 08/08/24 04:47 08/08/24 04:52 08/08/24 04:57 Temperature Pulse Rate Blood Pressure Pulse Oximetry 100 100 100 Oxygen Delivery 08/08/24 05:00 08/08/24 05:02 08/08/24 05:07 Temperature Pulse Rate 83 Blood Pressure 118/78 Pulse Oximetry 100 100 Oxygen Delivery 08/08/24 05:12 08/08/24 05:17 08/08/24 05:22 Temperature Pulse Rate Blood Pressure Pulse Oximetry 100 100 100 Oxygen Delivery 08/08/24 05:27 08/08/24 05:30 08/08/24 05:32 Temperature Pulse Rate 84 Blood Pressure 111/97 H Pulse Oximetry 100 100 Oxygen Delivery 08/08/24 05:37 08/08/24 05:42 08/08/24 05:47 Temperature Pulse Rate Blood Pressure Pulse Oximetry 100 100 100 Oxygen Delivery 08/08/24 05:52 08/08/24 05:57 08/08/24 06:00 Temperature Pulse Rate 84 Blood Pressure 94/58 L Pulse Oximetry 100 100 Oxygen Delivery 08/08/24 06:02 08/08/24 06:07 08/08/24 06:12 Temperature Pulse Rate Blood Pressure Pulse Oximetry 100 100 100 Oxygen Delivery 08/08/24 06:17 08/08/24 06:22 08/08/24 06:27 Temperature Pulse Rate Blood Pressure Pulse Oximetry 100 100 100 Oxygen Delivery 08/08/24 06:30 08/08/24 06:32 08/08/24 06:37 Temperature Pulse Rate 86 Blood Pressure 98/59 L Pulse Oximetry 99 98 Oxygen Delivery 08/08/24 07:09 08/08/24 07:14 08/08/24 07:16 Temperature Pulse Rate 68 Blood Pressure 107/68 Pulse Oximetry 100 100 100 Oxygen Delivery 08/08/24 07:21 08/08/24 07:25 08/08/24 07:25 Temperature Pulse Rate Blood Pressure Pulse Oximetry 100 100 100 Oxygen Delivery 08/08/24 07:25 08/08/24 07:27 08/08/24 07:29 Temperature Pulse Rate Blood Pressure Pulse Oximetry 100 77 L 87 L Oxygen Delivery 08/08/24 07:29 08/08/24 07:30 08/08/24 07:32 Temperature Pulse Rate 81 81 Blood Pressure 125/78 116/84 Pulse Oximetry 95 86 L Oxygen Delivery 08/08/24 07:34 08/08/24 07:35 08/08/24 07:36 Temperature Pulse Rate 83 72 Blood Pressure 128/73 122/76 Pulse Oximetry 100 Oxygen Delivery 08/08/24 07:37 08/08/24 07:40 08/08/24 07:42 Temperature Pulse Rate 84 Blood Pressure 102/68 Pulse Oximetry 97 100 Oxygen Delivery 08/08/24 07:44 08/08/24 07:45 08/08/24 07:46 Temperature Pulse Rate 71 Blood Pressure 122/66 Pulse Oximetry 100 100 Oxygen Delivery 08/08/24 07:48 08/08/24 07:50 08/08/24 07:51 Temperature Pulse Rate 70 76 Blood Pressure 120/73 114/70 Pulse Oximetry 100 Oxygen Delivery 08/08/24 07:52 08/08/24 07:54 08/08/24 07:56 Temperature Pulse Rate 74 71 70 Blood Pressure 120/73 119/72 118/58 L Pulse Oximetry 100 Oxygen Delivery 08/08/24 07:58 08/08/24 08:00 08/08/24 08:01 Temperature 97.9 F Pulse Rate 73 77 Blood Pressure 121/69 113/71 Pulse Oximetry 100 Oxygen Delivery 08/08/24 08:02 08/08/24 08:04 08/08/24 08:06 Temperature Pulse Rate 72 74 78 Blood Pressure 123/73 117/67 124/67 Pulse Oximetry Oxygen Delivery 08/08/24 08:08 08/08/24 08:10 08/08/24 08:12 Temperature Pulse Rate 69 70 77 Blood Pressure 114/73 124/77 117/72 Pulse Oximetry Oxygen Delivery 08/08/24 08:14 08/08/24 08:16 08/08/24 08:18 Temperature Pulse Rate 71 79 70 Blood Pressure 100/59 L 112/80 108/62 Pulse Oximetry Oxygen Delivery 08/08/24 08:20 08/08/24 08:22 08/08/24 08:24 Temperature Pulse Rate 91 92 75 Blood Pressure 112/70 122/85 112/60 Pulse Oximetry Oxygen Delivery 08/08/24 08:26 08/08/24 08:28 08/08/24 08:30 Temperature Pulse Rate 97 86 77 Blood Pressure 107/64 67/47 L 126/64 Pulse Oximetry Oxygen Delivery 08/08/24 08:32 08/08/24 08:34 08/08/24 08:36 Temperature Pulse Rate 87 81 90 Blood Pressure 111/74 117/65 108/83 Pulse Oximetry Oxygen Delivery 08/08/24 08:38 08/08/24 08:40 08/08/24 08:45 Temperature Pulse Rate 79 69 68 Blood Pressure 120/74 113/53 L 108/63 Pulse Oximetry Oxygen Delivery 08/08/24 09:00 08/08/24 09:15 08/08/24 09:30 Temperature Pulse Rate 86 72 66 Blood Pressure 106/72 102/76 104/63 Pulse Oximetry Oxygen Delivery 08/08/24 10:01 08/08/24 10:30 08/08/24 10:35 Temperature Pulse Rate 78 Blood Pressure 89/72 L Pulse Oximetry 100 100 Oxygen Delivery 08/08/24 10:40 08/08/24 10:43 08/08/24 00:35 Temperature Pulse Rate 77 Blood Pressure 97/68 L Pulse Oximetry 100 Oxygen Delivery Room Air Exam Const: General: no acute distress Eyes: EOM: EOMs intact bilaterally Neck: Neck: supple Thyroid: thyroid normal Chest: Breast/axilla inspection: normal inspection of the breasts Breast/axilla palpation: normal palpation of the breasts, normal palpation of the axillae and no axillary lymphadenopathy Resp: Effort & Inspection: normal respiratory effort Auscultation: clear to auscultation bilaterally Cardio: Rate: regular rate Rhythm: regular rhythm GI: Inspection: non-distended and other (Gravid) GI Palp: Yes Soft to palpation, No Tenderness to palpation present (GI) and No Guarding due to palpation present (GI) Auscultation: normal bowel sounds : Speculum Exam - Vagina: No vaginal bleeding OB/external & speculum: external exam normal; No vaginal bleeding Skin: General skin exam: normal color and no rashes or lesions noted Neuro: Cognition (Neuro): normal cognition Speech: normal speech Extrem: General: normal to inspection Psych: Mental Status: mental status grossly normal Affect: normal affect H&P: Results Labs Labs: Short CBC 08/08/24 Range/Units 00:39 WBC 6.9 (4.5-10.0) K/mm3 Hgb 12.0 D (12.0-15.0) g/dL Hct 37.2 (37.0-47.0) % Plt Count 232 (150-375) k/mm3 Assessment and Plan Assessment and plan (1) : Code(s): Z34.90 - Encounter for supervision of normal , unspecified, unspecified trimester Status: Acute Assessment and Plan: 34 yo plan for elective IOL at 39w0d plan for misoprostol IOL continuous EFM RH+ GBS neg (2) Anemia affecting : Code(s): O99.019 - Anemia complicating , unspecified trimester Status: Acute Assessment and Plan: s/p IV iron (3) Surrogate in third trimester: Code(s): Z33.3 - state, gestational carrier Status: Acute (4) conceived through in vitro fertilization: Code(s): O09.819 - Supervision of resulting from assisted reproductive technology, unspecified trimester Status: Acute (5) 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
[2024-08-08] MEDS: ONDANSETRON INJ 4 MG/2 ML VIAL IV PUSH ×2 (11:08→18:15)
[2024-08-08] MEDS: SODIUM CHLORIDE 0.9% IV 300 ML 600 ML I-UTERINE (12:16)
--- NOTE | 2024-08-08 18:14 | PM.OBPNLAB ---
Pain Control Date/time seen: 08/08/24 18:14 Pain control: epidural Comments: patient has been having pain control issues. Epidural was replaced. Pelvic Exam Dilation (cm): 10 Effacement (%): 100 station: 0 Contractions Monitor mode: Internal Contraction pattern: Regular Contraction intensity: Moderate Status status: Category ll Assessment and Plan Assessment: induction ongoing Plan: Comments: Patient progressed to complete dilation. Fetus was noted at 0 station. Patient pushed for approximately 1 hour. Patient had poor pain control. Epidural was replaced. Maternal effort was affected by pain control. Patient had expressed maternal exhaustion. Vaginal tissue and cervix noted to be edematous. Offered patient more pain control, assistance with operative vaginal delivery, or proceeding to primary Caesarean section. Patient stressed multiple times that she does not feel like she is able to push this baby out. Discussed that with patient's poor pain control, I would not recommend attempting operative vaginal delivery. Risks and benefits of primary discussed with patient. Patient is requesting primary for pain intolerance and maternal exhaustion.
[2024-08-08] MEDS: FAMOTIDINE 20 MG/2 ML VIAL IV PUSH (18:15)
[2024-08-08] MEDS: ceFAZolin 2 GM/D5W 50 ML 2 GM/50 ML BAG 999 GM (18:36)
[2024-08-08] MEDS: AZITHROMYCIN 500 MG/NS 250 ML 500 MG/250 ML BAG 250 MG IVPB (18:36)
--- NOTE | 2024-08-08 19:30 | W.PM.PROC2 ---
Procedure Note - Detailed Date of Procedure 08/08/24 Pre-op Diagnosis IOL arrest of descent maternal exhaustion Post-op Diagnosis Same Procedure Performed low transverse section Surgeon Bon Bhagat MD Anesthesia Epidural Indications arrest of descent maternal exhaustion Description of Procedure The patient was taken to the operating room. A combined spinal epidural anesthesic was administered and found to be adequate at a t-10 level. The patient was placed in a supine position with a slight left lateral tilt. A tang catheter was placed with return of clear urine. A Bovie grounding pad was placed. Surgical prep was performed and surgical drapes were placed. A surgical time out was performed. A Pfannenstiel skin incision was then made with the scalpel and carried through to the underlying layer of fascia. The fascia was then incised in the midline and the incision was extended laterally with the Givens scissors. The superior aspect of the fascia was then grasped with the Keyla clamps, elevated, and the underlying rectus muscles dissected off bluntly and sharply. Attention was then turned to the inferior aspect of this incision which, in a similar fashion, was grasped, tented up with the Keyla clamps, and the rectus muscles dissected off both bluntly and sharply. The rectus muscles were then in the midline. The peritoneum was identified and entered bluntly. The peritoneal incision was then extended superiorly and inferiorly with good visualization of the bladder. The Juan Jose ring retractor was placed for better retraction. The uterus was inspected for rotation. A low-transverse uterine incision was made sharply with the scalpel and entry was made into the uterine cavity. An amniotomy was made and copious amounts of meconium stained fluid was noted on return. The uterine incision was extended laterally bluntly. The bladder blade was removed and the fetus was delivered atraumatically. The umbilical cord was clamped and cut. The was handed off to the waiting staff. Cord blood was collected for determination of the blood type and for direct Lynch. The placenta was delivered spontaneously without difficulty. The placenta appeared grossly normal and complete. The uterus was exteriorized and cleared of all clots and debris. The uterine incision was repaired using 0-monocryl suture in a running fashion. A second layer of 0 Monocryl suture was used in an imbricating fashion to obtain excellent hemostasis and uterine strength. The uterine closure was inspected for hemostasis. The posterior aspect of the uterus and the broad ligaments were inspected and the posterior cul-de-sac cleared of fluid and blood clots. The uterine closure was again inspected and found to be hemostatic. The uterus was returned to the abdominal cavity. The pericolic gutters were inspected and were cleared of all blood clots and debris. The uterine closure was then re inspected to ensure hemostasis as were all subfascial tissues. The peritoneum was closed using 3-0 vicryl in a running fashion. The fascia was reapproximated with 0-vicryl in a running fashion. The subcutaneous tissue was irrigated and hemostasis achieved with electrocautery. The skin was closed with 3-0 monocryl in a subcuticular fashion. A sterile dressing was applied to the wound. The patient tolerated the procedure well. Sponge, lap and needle counts were correct times three. The patient was taken to recovery in stable condition and without anticipated complications. Drains No Packing No Pathology Yes (placenta) Complications No immediate complications Condition Stable Disposition Floor [facility] Billing Surgery - Charge Forward: Surgery Billing
[2024-08-08] MEDS: MORPHINE SULFATE INJ (*CRX) 10 MG/ML AMP 3 MG IV PUSH ×2 (20:08→20:31)
[2024-08-08] MEDS: fentaNYL CITRATE INJ (*CRX) 100 MCG/2 ML VIAL IV PUSH (20:59)
--- NOTE | 2024-08-08 22:06 | PC.NURSE ---
1840- FHT noted in 150's in OR prior to c/s
[2024-08-08] MEDS: KETOROLAC 15 MG/ML VIAL (*BKC) IV PUSH (22:28)
[2024-08-08] MEDS: ACETAMINOPHEN 325 MG TABLET 650 MG PO (22:29)
[2024-08-09] MEDS: MORPHINE SULFATE (*CRX) 2 MG/ML INJ IV PUSH (00:41)
[2024-08-09 00:51] VITALS: TEMP 37.3
[2024-08-09] MEDS: ACETAMINOPHEN 325 MG TABLET 650 MG PO ×4 (04:18→22:52)
[2024-08-09] MEDS: KETOROLAC 15 MG/ML VIAL (*BKC) IV PUSH ×3 (04:18→16:37)
[2024-08-09 04:23] VITALS: BP 99/69; PULSE 79; RESP 16; TEMP 37.2; O2SAT 100
[2024-08-09 07:10] LABS: Hematocrit 33.5 % (37.0-47.0); Hemoglobin 10.7 g/dL (12.0-15.0); Mean Corpuscular HGB Conc 31.9 g/dl (32-36); Mean Corpuscular Hemoglobin 27.2 pg (26-34); Mean Platelet Volume 9.9 fl (7.4-10.4); Platelet Count Result 177 k/mm3 (150-375); Red Blood Count 3.94 M/mm3 (4.2-5.4); Red Cell Distribution Width 16.4 % (11.5-14.5); White Blood Count 10.4 K/mm3 (4.5-10.0)
[2024-08-09] MEDS: HYDROcodone/acetaminophen (*CRX) 5-325 MG TABLET 1 TAB PO (07:12)
[2024-08-09 07:55] VITALS: BP 95/66; PULSE 93; RESP 16; TEMP 37.4; O2SAT 100
--- NOTE | 2024-08-09 08:17 | PM.OBPNVD ---
OB - PN: Subj Subjective Date/time seen: 08/09/24 08:17 Patient comments: no complaints, pain well controlled, tolerating diet and flatus present OB - PN: Obj Data Labs 08/09/24 07:01 Labs: Laboratory Results - last 24 hr 08/08/24 08/09/24 00:39 07:01 WBC 10.4 H RBC 3.94 L Hgb 10.7 L Hct 33.5 L MCV 85.0 MCH 27.2 MCHC 31.9 L RDW 16.4 H Plt Count 177 MPV 9.9 RPR Non-reactive OB - PN A/P Plan day: 1 Plan: routine care Comments: patient doing well H/H stable afebrile, VSS incision C/D/I d/c tang continue routine post op care anticipate d/c home tomorrow Time Spent With Patient Time: Total time spent is greater than 50% in coordination of care (as documented) at patient's floor/unit and/or counseling patient: Time with patient: less than 15 minutes Review of Systems Constitutional: Constitutional: Reports no additional constitutional complaints Cardiovascular: Cardiovascular: Reports no additional cardiovascular complaints Respiratory: Respiratory: Reports no additional respiratory complaints Gastrointestinal: Gastrointestinal: Reports no additional gastrointestinal complaints Genitourinary: Genitourinary: Reports no additional female genitourinary complaints Exam Const: General: comfortable and no acute distress Resp: Effort & Inspection: normal respiratory effort Auscultation: clear to auscultation bilaterally Cardio: Rate: regular rate GI: GI Palp: Yes Soft to palpation, Yes Tenderness to palpation present (GI) (around incision ) and No Guarding due to palpation present (GI) Auscultation: normal bowel sounds Other: incision C/D/I, covered with Dermabond Psych: Appearance: grossly normal Mental Status: mental status grossly normal Affect: normal affect
--- NOTE | 2024-08-09 10:03 | PC.NURSE ---
0815 Breast pump provided due to patient request, she brought in her own Mom Cozy pump, both nipples measured at 24mm and per her pump instructions she needed the size 27 flange and her pump only came with size 24, if she continues to pump she will need to order the larger size as well sterilize and clean all the pump parts and pieces before use. Hospital pump was then given, she is going to try the hand pump first that is in the kit and possibly hand express instead of the electric pump at first. Instructions given on cleaning, care, usage, that there should be no pain, pumping schedule for milk production, collection, and storage of human milk. Patient was assessed for correct placement, flange size (using size 30 for the Medela pump), to pump for comfort and nipple stretching/stimulation for adequate milk production every 3 hours (8 times in 24 hours) 1-2 times at night. Per patient she is visually impaired and has a history of breast augmentation where her implants were placed under the muscle, she was able to successfully breastfeed her children. The patient is here as a surrogate and is only collecting colostrum for 1-2 days per the baby's parents request. Colostrum will be collected and labeled with the date/time and the baby's sticker will be applied. The parents will be given the pumped colostrum when they ask for it sometime before the baby is discharged. The pumped colostrum can be in the refrigerator for 4 days. Patient encouraged to record the pumping schedule on the feeding sheet.?Mother voiced understanding of the education shared along with mom/baby guide and the pump measurement, flange fit handout for additional resource information. Reported to the Primary RN. 0840 RN assisted patient with hand pump and she was able to express 0.5mls of colostrum, it was labeled with the baby's information, timed and dated, then placed in the breast milk refrigerator in the 2nd floor nursery. Note to be placed in the baby's chart as well.
[2024-08-09] MEDS: SIMETHICONE 80 MG TAB.CHEW PO ×3 (10:15→16:36)
[2024-08-09] MEDS: DOCUSATE SODIUM 100 MG CAPSULE PO ×2 (10:16→16:36)
[2024-08-09] MEDS: diphenhydrAMINE HCl CAP 25 MG CAPSULE (10:16)
[2024-08-09] MEDS: MULTIVIT/MIN/PREN/FOL AC/IRON TABLET 1 TAB PO (10:16)
--- NOTE | 2024-08-09 10:30 | WPDANLDPN2 ---
Anes-Prog Note L&D Date/Time: 08/09/24 10:30 Comfortable throughout: section Neuraxial method: epidural Epidural/Spinal procedure site: clean & non-tender Neuro status: Neuro function grossly intact. Cardiovascular status: normal Respiratory status: normal Airway patency: baseline Mental status: baseline Post-Op hydration status: normal Vital Signs: Last Vital Signs Temp 37.4 C 08/09/24 07:55 Pulse 93 08/09/24 07:55 Resp 16 08/09/24 07:55 BP 95/66 L 08/09/24 07:55 Pulse Ox 100 08/09/24 07:55 O2 Del Method Room Air 08/08/24 00:35 Pain score (VAS): 5/10 I/O: Intake & Output 08/08/24 08/09/24 08/09/24 23:59 07:59 15:59 Intake Total 50 Output Total 7032 950 Balance -3082 -950 Post-procedural complaints: none Patient feedback: Patient satisfied with anesthetic care.
--- NOTE | 2024-08-09 10:30 | WPDANLDNPN2 ---
Anes-Prog Note L&D-Neuraxial Date/Time: 08/09/24 10:30 Neuraxial medications: epidural PF morphine Opiod-related complaints: pruritis (Requested nursing staff administer Benadryl for relief of symptoms ) Patient feedback: Patient satisfied with post-operative pain management.
[2024-08-09 12:58] VITALS: BP 97/58; PULSE 79; RESP 16; TEMP 37.6; O2SAT 100
[2024-08-09] MEDS: HYDROcodone/acetaminophen (*CRX) 10-325 MG TABLET 1 TAB PO ×2 (15:25→19:12)
[2024-08-09] MEDS: DIBUCAINE 1% OINTMENT 30 GM TUBE 1 APPLIC (15:26)
[2024-08-09] MEDS: LIDOCAINE 5% PATCH 1 PATCH TRANSDERM (16:39)
--- NOTE | 2024-08-09 17:49 | PC.NURSE ---
1700. This RN helped set up mom's breast pump and assisted her to put it on and start the timer. Mom is visually impaired and was having difficulty getting the parts together and pressing the buttons to start the pump. This RN encouraged mom to call for help anytime she needs help setting up the pump. Mom pumped for 15 min, this RN cleaned her pump parts and left them to air dry on a clean towel. We reviewed pumping on a schedule of every 3 hours. Mom verbalized understanding.
[2024-08-09 19:45] VITALS: BP 111/75; PULSE 73; RESP 16; TEMP 37.5; O2SAT 100
[2024-08-09] MEDS: IBUPROFEN 600 MG TABLET PO (22:52)
[2024-08-10] MEDS: IBUPROFEN 600 MG TABLET PO ×3 (05:15→17:46)
[2024-08-10] MEDS: ACETAMINOPHEN 325 MG TABLET 650 MG PO ×3 (05:16→17:45)
[2024-08-10 07:30] VITALS: BP 111/69; PULSE 86; RESP 16; TEMP 36.6; O2SAT 100
[2024-08-10] MEDS: DOCUSATE SODIUM 100 MG CAPSULE PO ×2 (07:53→16:18)
[2024-08-10] MEDS: SIMETHICONE 80 MG TAB.CHEW PO ×2 (07:53→11:23)
[2024-08-10] MEDS: MULTIVIT/MIN/PREN/FOL AC/IRON TABLET 1 TAB PO (07:53)
[2024-08-10] MEDS: HYDROcodone/acetaminophen (*CRX) 10-325 MG TABLET 1 TAB PO (08:01)
--- NOTE | 2024-08-10 12:27 | P.PNOB_ITS ---
OB - PN: Subj Subjective Date/time seen: 08/10/24 12:27 Patient comments: no complaints, pain well controlled, tolerating diet and flatus present OB - PN: Obj Data Labs 08/09/24 07:01 OB - PN A/P Plan day: 1 Plan: routine care Comments: patient doing well H/H stable afebrile, VSS incision C/D/I pt would like to be discharge tomorrow continue routine post op care Time Spent With Patient Time: Total time spent is greater than 50% in coordination of care (as documented) at patient's floor/unit and/or counseling patient: Time with patient: less than 15 minutes Review of Systems Constitutional: Constitutional: Reports no additional constitutional complaints Cardiovascular: Cardiovascular: Reports no additional cardiovascular complaints Respiratory: Respiratory: Reports no additional respiratory complaints Gastrointestinal: Gastrointestinal: Reports no additional gastrointestinal complaints Genitourinary: Genitourinary: Reports no additional female genitourinary complaints Exam Const: General: comfortable and no acute distress Resp: Effort & Inspection: normal respiratory effort Auscultation: clear to auscultation bilaterally Cardio: Rate: regular rate GI: GI Palp: Yes Soft to palpation, Yes Tenderness to palpation present (GI) (around incision ) and No Guarding due to palpation present (GI) Ausc ultation: normal bowel sounds Other: incision C/D/I, covered with Dermabond Psych: Appearance: grossly normal Mental Status: mental status grossly normal Affect: normal affect
--- NOTE | 2024-08-10 12:28 | PM.OBDSVD ---
DS: Admitting Diagnosis Discharge Date 08/11/24 Admitting Diagnosis intrauterine at term surrogate DS: Discharge Diagnosis Discharge Diagnosis (1) delivery delivered: Code(s): O82 - Encounter for delivery without indication Status: Acute (2) Arrest of descent, delivered, current hospitalization: Code(s): O62.1 - Secondary uterine inertia Status: Acute OB - DS: Summary OB Procedures : None OB Procedures Intrapartum: OB Procedures: : None Peripartum Data Infant Delivery Method: Section Procedures: Procedures Operation Date: 08/08/24 18:10 <No data on this case meets the specified criteria> complications: none Status at Discharge Functional status at discharge: independent ambulation Overall status at discharge: patient is progressing back to baseline Time Spent with Patient Time attestation: Total time spent providing and/or coordinating discharge services: Time spent: Less than 30 minutes Exam Const: General: comfortable and no acute distress Resp: Effort & Inspection: normal respiratory effort Auscultation: clear to auscultation bilaterally Cardio: Rate: regular rate GI: Inspection: non-distended GI Palp: Yes Soft to palpation, No Firmness to palpation present (GI), Yes Tenderness to palpation present (GI) (mild tenderness over incision ) and No Guarding due to palpation present (GI) Auscultation: normal bowel sounds Psych: Appearance: grossly normal Mental Status: mental status grossly normal Discharge Plan Discharge Discharging Clinician: Bon Bhagat Patient Disposition: Home, Self-Care Activity: no straining, as tolerated and pelvic rest Diet: regular Patient Instructions: Antibiotic Form, (DC) Stand Alone Forms: General Discharge Information Follow-up/Referrals: Bon Bhagat MD [Primary Care Provider] - 4 Weeks Discharge Medications: New oxycodone-acetaminophen 5-325 mg tablet 1 tablet PO Q6H PRN (Reason: pain) Qty: 28 0RF ibuprofen 600 mg tablet 600 mg PO Q6H PRN (Reason: pain) Qty: 30 0RF Continued dorzolamide 2 % drops EACH EYE multivitamin with iron [Daily Vitamin with Iron] Tablet 1 tablet PO DAILY Classic 28 mg iron- 800 mcg tablet 1 tablet PO DAILY Qty: 90 3RF Date of admission: 08/08/24 00:01 Primary Care Provider: Bon Bhagat Admitting Provider: Bon Bhagat Attending physician on admission: Bon Bhagat Condition: Stable
[2024-08-10] MEDS: HYDROcodone/acetaminophen (*CRX) 5-325 MG TABLET 1 TAB PO ×2 (16:18→22:36)
[2024-08-10] MEDS: DIBUCAINE 1% OINTMENT 30 GM TUBE 1 APPLIC TOPICAL (17:45)
[2024-08-10] MEDS: WITCH HAZEL 40 PADS 1 PAD TOPICAL (17:45)
[2024-08-10] MEDS: LIDOCAINE 5% PATCH 1 PATCH TRANSDERM (17:46)
[2024-08-10 18:58] VITALS: BP 115/74; PULSE 72; RESP 18; TEMP 36.8; O2SAT 98
[2024-08-11] MEDS: IBUPROFEN 600 MG TABLET PO ×2 (00:20→08:02)
[2024-08-11] MEDS: ACETAMINOPHEN 325 MG TABLET 650 MG PO ×2 (00:20→08:02)
[2024-08-11] MEDS: HYDROcodone/acetaminophen (*CRX) 5-325 MG TABLET 1 TAB PO (04:25)
[2024-08-11] MEDS: SIMETHICONE 80 MG TAB.CHEW PO (08:01)
[2024-08-11] MEDS: DOCUSATE SODIUM 100 MG CAPSULE PO (08:02)
[2024-08-11 08:05] VITALS: BP 95/62; PULSE 81; RESP 16; TEMP 36.8
[2024-08-13 11:16] VITALS: BP 113/65; PULSE 85; RESP 18; TEMP 36.7; O2SAT 100
== END 2024-08-11 09:35 | disposition home or self-care (01) | DRG 788 ==
LOC: ANHLDR 00:14 → ANHOB2 22:00
PROVIDERS: Admitting Provider Student in an Organized Health Care Education/Training Program; PCP Student in an Organized Health Care Education/Training Program; Visit Provider Student in an Organized Health Care Education/Training Program
PROC: 10D00Z1 Extraction of Products of Conception, Low, Open Approach (ICD-10-PCS; CPT 59514; principal; 2024-08-08 18:10)
DX: O75.81 Maternal exhaustion complicating labor and delivery (principal); Z37.0 Single live birth; Z3A.39 39 weeks gestation of pregnancy; O62.1 Secondary uterine inertia
CPT/HCPCS: 36415; 85025; 85027; 86592; 86703; 86850; 86900; 86901; A9270; G0432; J1885; J2270; J2274; J2405; J2590; J2795; J3010; J7030; J7120

== ENCOUNTER 2024-11-16 09:44 | Outpatient (CLI) | payer MEDICARE, MEDICAID, SELFPAY ==
--- NOTE | ~2024-11-16 | MR_ITS ---
EXAMINATION: MR wrist LT wo con DATE: 11/16/2024 11:31 INDICATION: Sprain at the left wrist. TECHNIQUE: Magnetic resonance imaging (MRI) of the left wrist was performed without intravenous contr ast. Sequences performed include axial PD-weighted FSE and PD-weighted FS FSE, coronal PD-weighted FS FSE and T1-weighted SE, and sagittal PD-weighted FS FSE and PD-weighted FSE. COMPARISON: None FINDINGS: Intrinsic ligaments: Partial tear at the dorsal component of the scapholunate ligament. The central and volar components o f the scapholunate ligament are normal. Lunotriquetral ligament is normal. Triangular fibrocartilage complex (TFCC): The triangular fibrocartilage including its foveal and styloid attachments as well as the dorsal and volar radioulnar ligaments are normal. The ulnar collateral ligament, ulnotriquetral ligament and men iscal homologue are normal. The extensor carpi ulnaris tendon sheath is normal. Extensor wrist: There is mild De Quervain's tenosynovitis with increased fluid signal in tendons at the first tarsal compartment. There is fusiform thickening of the extensor pollicis brevis tendon centered at the leve l of the the tip of the radial styloid process. There appears to be abrupt attenuation of the tendon as it passes along the base of the radial styloid process suspicious for a partial-thickness tear. Mi ld the carpi naris tendinopathy with longitudinal split tear extending along the distal tendon. Remai mary extensor tendons of the wrist are normal. Flexor wrist: The flexor tendons of the wrist are normal. No abnormality in the carpal tunnel with normal median n erve. Guyon's canal: Guyon's canal including the ulnar nerve and artery are normal. Bones/other: Normal marrow signal. No fracture, erosions, avascular necrosis or abnormal marrow replacing process. Mild osteoarthritis at the triscaphe and first carpal metacarpal joints. 8 x 5 x 5 mm ganglion cyst located volar to the radial styloid process, unclear whether this arises from the midcarpal or radioc arpal joint. IMPRESSION: 1. De Quervain's tenosynovitis with mild extensor pollicis brevis tendinopathy without tear. 2. Mild tendinopathy and longitudinal split tearing of the distal extensor carpi ulnaris tendon. 3. Partial tear of the dorsal component of the scapholunate ligament. 4. Mild particular osteoarthritis at the triscaphe and first carpal metacarpal joints. 5. Small ganglion cyst located palmar to the radial styloid process. Reviewed, dictated and finalized at location A. ACTORY MIXER IMPRESSION: 1. De Quervain's tenosynovitis with mild extensor pollicis brevis tendinopathy without tear. 2. Mild tendinopathy and longitudinal split tearing of the distal extensor carp i ulnaris tendon. 3. Partial tear of the dorsal component of the scapholunate ligament. 4. Mild particular osteoarthritis at the triscaphe and first carpal metacarpal joints. 5. Small ganglion cyst located palmar to the radial styloid process.
--- NOTE | ~2024-11-16 | MR_ITS ---
EXAMINATION: MR wrist RT wo con DATE: 11/16/2024 11:31 INDICATION: Right wrist sprain TECHNIQUE: Magnetic resonance imaging (MRI) of the right wrist was performed without intravenous cont rast. Sequences performed include axial PD-weighted FSE and PD-weighted FS FSE, coronal PD-weighted F S FSE and T1-weighted SE, and sagittal PD-weighted FS FSE and PD-weighted FSE. COMPARISON: None FINDINGS: Intrinsic ligaments: The scapholunate and lunotriquetral ligaments are normal. Triangular fibrocartilage complex (TFCC): The triangular fibrocartilage including its foveal and styloid attachments as well as the dorsal and volar radioulnar ligaments are normal. The ulnar collateral ligament, ulnotriquetral ligament and men iscal homologue are normal. The extensor carpi ulnaris tendon sheath is normal. Extensor wrist: De Quervain's tenosynovitis with increased signal about the first tarsal compartment. There is mild t endinopathy and longitudinal split tearing of the extensor pollicis brevis brevis tendon at the level of the distal radius. Extensor tendons of the wrist are otherwise normal. Flexor wrist: The flexor tendons of the wrist are normal. No abnormality in the carpal tunnel with normal median n erve. Guyon's canal: Guyon's canal including the ulnar nerve and artery are normal. Bones/other: Normal marrow signal. No fracture, erosions, avascular necrosis or abnormal marrow replacing process. Mild polyarticular osteoarthritis at the distal radioulnar, triscaphe, first carpal metacarpal and p acer triquetral joints. 8 x 7 x 4 mm ganglion cyst arising from the volar aspect of the midcarpal adeline nt and extending proximally across the proximal pole of the scaphoid and radial styloid process. IMPRESSION: 1. De Quervain's tenosynovitis with tendinopathy and longitudinal split tearing of the extensor polli cis brevis tendon. 2. 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 3. Small ganglion cyst likely arising from the midcarpal joint located volar to the proximal pole of the scaphoid and the radial styloid process. Reviewed, dictated and finalized at location A. RAL SCHEDULER IMPRESSION: 1. De Quervain's tenosynovitis with tendinopathy and longitudinal split tearing of the extensor pollicis brevis tendon. 2. 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 3. Small ganglion cyst likely arising from the midcarpal joint located volar to the proximal pole of the scaphoid and the radial styloid process.
--- OUTSIDE RECORDS SUMMARY | 2024-11-16 09:57 | XMS_ITS | Referral Summary ---
Author Organization [facility] [employer] Address [address] [place] [address] Care Team Providers Care Director Marketing Communications Name Role Phone Simón Broderick MD Primary Care Provider [phone] Source Comments [facility] [employer],non-owned Affiliates and Associated Physician Practices is amultiple site organization consisting of ambulatory clinics and hospital sitesin [place], [place], [place]. This disclosure is being madepursuant to the Care Everywhere program and may not contain all informatio navailable regarding this patient. Last updated 18.[facility] [employer] Allergies No known active allergies Medications * Be aware that medications may not be up to date on this document. Alwaysverify current medications with the patient. Medication Sig Dispensed Refills Start Date End Date Status Vit-DSS-Fe Fum-FA ( vitamin with iron) tablet Take 1 (one) tablet by mouth once daily Active ferrous sulfate 325 (65 FE) MG tablet Take 1 (one) tablet by mouth once daily Active dorzolamide (Trusopt) 2 % ophthalmic solution Instill 1 (one) drop into both eyes 2 times daily 10 mL 2 06/22/2024 Active Active Problems Problem Noted Date Diagnosed Date Supervision of high risk , antepartum 0 06/19/2024 Assessment & Plan (06/19/2024 4:27 PM CDT): Luana is under the care of Dr. Bhagat. She is a surrogate for IVF . Prior pregnancies went to term uncomplicated. US today is reassuring with normal growth, anatomy, and fluid. Chronic hypertension affecting 024 Assessment & Plan (06/19/2024 4:42 PM CDT): She has chronic hypertension and no history of preeclampsia. BP stable. Labs sent. It is highly unlikely that this is preeclampsia. Labs sent. 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 She is followed closely by optho with multiple other complications. She was seen at the [facility] who recommended urgent MRI/MRV and LP. Case discussed with Dr. Beth. We will directly admit her for MRI and LP tomorrow and neurology consultation. Will escalate treatment as needed. Visual loss 06/19/2024 Assessment & Plan (06/19/2024 4:54 PM CDT): Work up in process. Anemia affecting in third trimester Assessment & Plan (06/19/2024 4:30 PM CDT): Luana is severely anemic with low MCV. Prior SCT negative. She is on oral iron. Iron studies were sent today. Recommend IV iron replacement if JOAN confirmed. Immunizations Name Administration Dates Next Due DTaP VACCINE IM (6wk-6yrs) 07/06/1997 HEP A PEDS 2 DOSE 07/25/2009,05/30/2003 HEP B VACCINE, PED/ADOL 08/05/2003,05/30/2003, HIB-HAEMOPHILUS INFLUENZAE B CONJUGATE VACCINE 07/01/1993,1992,1992,04/16 Human Papilloma Virus Alla valent Vaccine 07/25/2009 MENINGOCOCCAL CONJUGATE (MCV4P) 07/25/2009 MMR 07/06/1997,07/01/1993 POLIO OPV 07/06/1997, 4,1992,10/17,1992 TD VACCINE 05/30/2003 TDAP (7yrs+) 01/21/2021,07/25/2009 VARICELLA 05/03/2002 Social History Tobacco Use Types Packs/Day Years Used Date Smoking Tobacco: Never Smokeless Tobacco: Never Tobacco Cessation:Counseling Given: Not Answered Alcohol Use Standard Drinks/Week Comments Never 0 (1 standard drink = 0.6 oz pur e alcohol) Overall Financial Resource Strain (CARDIA) Answe r Date Recorded How hard is it for you to pa y for the very basics like food, housing, medical care, and heating? Patient declined 06[facility]20[facility]20[facility] - Occupational Stress Questionnaire Answer Date Recorded Do you feel stress - tense, restless, nervous, or anxious, or unable to sleep at night because your mind is troubled all the time - these days? Not at all 06/20/2024 Hunger Vital Sign Answer Date Recorded Within the past 12 months, y ou worried that your food would run out before you got the money to buy more. Patient declined Within the past 12 months, t he food you bought just didn't last and you didn't have money to get more. Patient declined PRAPARE - Transportation Answer Date Re corded In the past 12 months, has l ack of transportation kept you from medical appointments or from getting medications? No 06/03 In the past 12 months, has l ack of transportation kept you from meetings, work, or from getting things needed for daily living? No 06/20/2024 Housing Stability Vital Sign Answer David e Recorded In the last 12 months, was t here a time when you were not able to pay the mortgage or rent on time? Patient declined 06/20/20 24 In the last 12 months, how many places have you lived? 1 06/20/2024 In the last 12 months, was t here a time when you did not have a steady place to sleep or slept in a nursing home (including now)? No 06/20/2024 Sex and Gender Information Value Date Recorded Sex Assigned at Not on file Gender Identity Not on file Sexual Orientation Not on file Last Filed Vital Signs Vital Sign Reading Time Taken Comments Blood Pressure 112/72 06/22/2024 4:00 PM CDT Pulse 105 06/22/2024 4:00 PM CDT Temperature 36.8 C (98.3 F) 06/22/2024 4:00 PM CDT Respiratory Rate 20 06/22/2024 4:00 PM CDT Oxygen Saturation 100% 06/22/2024 4:00 PM CDT Inhaled Oxygen Concentration - - Weight 69.9 kg (154 lb) 06/22/2024 1:00 PM CDT Height 167.6 cm (5' 6 ) 06/22/2024 1:00 PM CDT Body Mass Index 24.86 06/22/2024 1:00 PM CDT Functional Status Functional Status Response Date of Assess ment Is person deaf or have serious hearing difficult y? No 06/20/2024 Is person blind or have serious difficulty seein g? No 06/20/2024 Does person have serious dif ficulty walking/climbing stairs? No 06/20/2024 Does person have difficulty dressing/bathing? No 06/20/2024 Does person have difficulty doing errands alone? No 06/20/2024 Cognitive Status Response Date of Assessm ent Does person have difficulty concentrating/remembering/making decisions? No 06/20/2024 Plan of Treatment Not on file Procedures Procedure Name Priority Date/Time Associated Diagnosis Comments CULTURE STREP B Routine 06/20/2024 2:08 PM CDT from Last 3 Months or Most Recently Relevant to Health Maintenance Results * CULTURE STREP B (06/20/2024 2:08 PM CDT) Culture Strep B Negative for beta-hemolytic Streptococcus Group B YEMI 06/23/2024 4:08 PM CDT [facility] Microbiology MISCELLANEOUS SAMPLES / Unknown Collection / Unknown 06/20/2024 2:08 PM CDT 06/20/2024 2:24 PM CDT Paola Beth MD LAB - MICROBIOLOGY ORDERABLES [facility] [address] [place], [place] [address], [facility] [phone] from Last 3 Months or Most Recently Relevant to Health Maintenance Administered Medications Advance Directives * Full Code (Latest Code Status on File) Date Activated Date Inactivated Comments 06/20/2024 1:13 PM 06/22/2024 7:41 PM Care Teams Director Marketing Communications Relationship Specialty Start Date End Date Simón Broderick MD PCP - General Internal Medicine 01/21/21
--- OUTSIDE RECORDS SUMMARY | 2024-11-16 09:57 | XMS_ITS | Encounter Summary ---
Author Organization [facility] Care Team Providers Care Kitchen Mechanic Name Role Phone No, Physician Primary Care Provider [phone] Jese Ashley MD Primary Care Provider [phone] Simón Broderick MD Primary Care Provider [phone] Encounter Details Date Type Department Care Team (Latest Contact Info) Description 07/23/2015 Orders Only [facility]INCON[facility] ProviderFernando MD [address] [place] [id number] Social History Tobacco Use Types Packs/Day Years Used Date Smoking Tobacco: Never Assessed Comments Unknown Sex and Gender Information Value Date Recorded Sex Assigned at Not on file Legal 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
--- OUTSIDE RECORDS SUMMARY | 2024-11-16 09:57 | XMS_ITS | Patient Health Summary ---
Author Organization [facility] Address [address] [place] [address] Care Team Providers Care Interventional Radiology Rn Name Role Phone Simón Broderick MD Primary Care Provider [phone] Note from [facility],non-owned Affiliates and Associated Physician Practices is amultiple site organization consisting of ambulatory clinics and hospital sitesin [place], [place], [place] and [place]. This disclosure is being madepursuant to the Care Everywhere program and may not contain all information available regarding this patient. Last updated 18.[facility] Allergies No known active allergies Medications * Be aware that medications may not be up to date on this document. Alwaysverify current medications with the patient. 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 Visual loss 06/19/2024 Anemia affecting in third trimester Immunizations * DTaP VACCINE IM (6wk-6yrs)(Given 07/06/1997) * HEP A PEDS 2 DOSE(Given 07/25/2009, 05/30/2003) * HEP B VACCINE, PED/ADOL(Given 08/05/2003, 05/30/2003, 05/03/2002) * HIB-HAEMOPHILUS INFLUENZAE B CONJUGATE VACCINE(Given 07/01/1993, 1992, 1992, 1992) * Human Papilloma Virus Quadrivalent Vaccine(Given 07/25/2009) * MENINGOCOCCAL CONJUGATE (MCV4P)(Given 07/25/2009) * MMR(Given 07/06/1997, 07/01/1993) * POLIO OPV(Given 07/06/1997, 04/17/1994, 1992, 1992, 1992) * TD VACCINE(Given 05/30/2003) * TDAP (7yrs+)(Given 01/21/2021, 07/25/2009) * VARICELLA(Given 05/03/2002) Social History Tobacco Use Types Packs/Day Years [...] medical care, and heating? Patient declined 06/20/2024 [facility] [place] of Occupat ional Health - Occupational Stress Questionnaire Answer Date Recorded [...] place to sleep or slept in a jail (including now)? No 06/20/2024 Sex and Gender [...] Mass Index 24.86 06/22/2024 1:00 PM CDT Procedures * NON-STRESS TEST(Performed 06/22/2024) * CYTOLOGY NON-CAMPAIGN MANAGER PANEL (STL)(Performed 06/21/2024) Performed for Visual loss * CELL COUNT W DIFFERENTIAL CSF(Performed 06/21/2024) * PROTEIN CSF(Performed 06/21/2024) * GLUCOSE CSF(Performed 06/21/2024) * CULTURE CSF+GRAM STAIN(Performed 06/21/2024) * MRI ANGIO BRAIN VENOUS WO CONT(Performed 06/21/2024) Performed for Headache in , third trimester (HCC), Facial pain * BLOOD TYPE VERIFICATION(Performed 06/20/2024) * URINE MICROSCOPIC ONLY REFLEX TO CULTURE(Performed 06/20/2024) Performed for Supervision of high risk , antepartum ([facility]) * PROTEIN CREATININE RATIO URINE RANDOM PNL(Performed 06/20/2024) Performed for Supervision of high risk , antepartum ([facility]) * URINALYSIS REFLEX MICROSCOPIC REFLEX CULTURE(Performed 06/20/2024) Performed for Supervision of high risk , antepartum ([facility]) * CULTURE STREP B(Performed 06/20/2024) * TYPE + SCREEN PANEL(Performed 06/20/2024) * FERRITIN(Performed 06/20/2024) * COMPREHENSIVE METABOLIC PANEL(Performed 06/20/2024) Performed for Supervision of high risk , antepartum ([facility]) * CBC W AUTO DIFFERENTIAL(Performed 06/20/2024) Performed for Supervision of high risk , antepartum ([facility]) * MRI BRAIN WO CONTRAST(Performed 06/20/2024) Performed for Visual loss, Retinitis pigmentosa, 31 weeks gestation of ([facility]) * SONOGRAM - COMPLETE(Performed 06/19/2024) Performed for Encounter for ultrasound to assess growth ([facility]), Encounter for anatomic survey ([facility]), Visual acuity reduced * SKIN TEST PPD - POINT OF CARE(Performed 01/23/2021) Performed for Encounter for PPD test Results * NON-STRESS TEST (06/22/2024 12:05 PM CDT) Anatomical Region Laterality Modality Other Narrative 06/22/2024 12:05 PM CDT Randa Roca MD 06/22/2024 4:45 PM Name: Luana Winters Date of : 1990 Today's Date: 06/22/2024 32w1d 06/22/24 efm applied 1059 06/22/24 efm completed 1146 NST RESULTS (CAGE) OBJECTIVE FINDINGS ,98.4 oral 93 20 100/61 o2 sat 100 , , NST Indication(s): (vision changes, ricardo work up) Uterine Irritability: Yes Contractions: Irregular Frequency: x1 Duration (sec) Range: 80 Perceived Intensity: (pt. denies feeling) OBJECTIVE FINDINGS Movement: Present Monitoring Mode: External Baseline: 135 BPM to 130bpm Variability: Moderate Decelerations: None Accelerations: Yes OTHER INFORMATION Inpatient Interventions: Position Change (tocco found off several time, pt. not laying still, tocco reposioned several times) Alva Pillai LPN Non-Stress Test [facility] Patient Name: Luana Winters LMP: No LMP recorded. Patient is . Gestational Age: 32w1d as of 06/22/2024 Estimated Date of Delivery: 08/16/24 Indications: other vision change in NST date: 06/22/2024 NST duration: >20 mins Interpretation: Baseline: 130 beats/minute moderate variability +Reactive Contractions: irritable Decelerations: none Impression and Plan: FWB reassuring, continue monitoring as scheduled. Randa Roca MD 06/22/2024 4:43 PM Paola Beth MD [facility] ORDERABLES * CYTOLOGY NON-CAMPAIGN MANAGER PANEL (STL) (06/21/2024 5:16 PM CDT) Case Report Cytology Non Film Editor Supervisor Report Case: [id number] Authorizing Provider: Anahi Neil PA-C Collected: 06/21/2024 05:16 PM Ordering Location: [address] ANTEPARTUM/MOTHER Received: 06/22/2024 07:51 AM BABY Pathologist: Mihai Fox MD Specimen: CSF 06/25/2024 10:51 AM [facility] Final Diagnosis Cerebrospinal fluid, lumbar puncture: - Scattered lymphocytes 06/25/2024 10:51 AM [facility] Clinical History Worsening vision 06/25/2024 10:51 AM T [facility] Gross Description Approximately 1 mL of clear CSF is received. A Pap-stained ThinPrep slide is made. W 06/25/2024 10:51 AM [facility] Grossed By Mihai Fox M.D. 06/04 10:51 AM [facility] Microscopic Description In a Pap-stained ThinPrep slide, there are scattered small mononuclear cells (most likely lymphocytes) mixed with strands of anucleate proteinaceous debris. In addition, there is a fragment (possibly choroid plexus) with several suboptimally preserved nuclei within relatively abundant cytoplasm. No large cohesive aggregates of malignant-appearing epithelium are identified. 06/25/2024 10:51 AM T [facility] Pathologist Location at [facility] 06/25/2024 10:51 AM [facility] Disclaimer All histochemical and/or immunohistochemical results are interpreted with controls that demonstrate appropriate staining reactions before reporting results. Note on use of immunocytochemistry reagents: This test was developed and its performance characteristic determined by [facility], Department of Laboratory Medicine. It has not been cleared or approved by the U.S. Food and Drug Administration (FDA). The FDA has determined that such clearance or approval is not necessary. The test is used for clinical purpose. It should not be regarded as investigational or for research. This laboratory is certified to perform high complexity testing. The performance characteristics of the IHC/RAMY assays have been validated on formalin-fixed paraffin embedded tissues only. The assays have not been validated on decalcified tissues. Results should be interpreted with caution. 06/25/2024 10:51 AM CDT [facility] Embedded Images 06/25/2024 10:51 AM CDT [facility] Pathology/Cytolo gy CEREBROSPINAL FLUID SPECIMEN / Unknown Collection / Unknown 06/21/2024 5:16 PM CDT 06/22/2024 7:51 AM CDT Anahi Neil PA-C LAB - PATHOLOGY/ CYTOLOGY ORDERABLES Performing Organization Address [facility]/ZIP Co de Phone Number [facility] [address] [place] [address] * CULTURE CSF+GRAM STAIN (06/21/2024 5:15 PM CDT) Culture No growth YEMI 06/29/2024 6:05 AM CDT [facility]CRO[facility] Gram Stain No polymorphonuclear cells 06/29/2024 6:05 AM CDT [facility] Gram Stain Light Red blood cells 06/29/2024 6:05 AM CDT [facility]CRO[facility] Gram Stain No organisms seen 024 6:05 AM CDT [facility]CRO[facility] Cerebral spinal fluid CEREBROSPINAL FLUID SPECIMEN / Unknown Collection / Unknown 06/21/2024 5:15 PM CDT 06/21/2024 5:39 PM CDT Anahi Neil PA-C LAB - MICROBIOLO GY ORDERABLES [facility] MICROBIOLOG[facility] [address] [place] [address], [facility] [phone] * (ABNORMAL) CELL COUNT W DIFFERENTIAL CSF (06/21/2024 5:15 PM CDT) Tube Number TUBE 3 06/21/2024 6:35 PM CDT [facility] Xanthochromia ABSENT ABSENT 06/21/2024 6:35 PM CDT [facility] CSF Appearance CLEAR 06/21/2024 6:35 PM CDT [facility] CSF Color COLORLESS 06/21/2024 6:35 PM CDT [facility] Total Nucleated Cells CSF 3 <=5 x10E6/L 06/21/2024 6:35 PM CDT [facility] RBC Count CSF 3(H) <1 x10E6/L 06/21/2024 6:35 PM CDT [facility] Cerebral spinal fluid CEREBROSPINAL FLUID SPECIMEN / Unknown Collection / Unknown 06/21/2024 5:15 PM CDT 06/21/2024 5:39 PM CDT Anahi Neil PA-C LAB - BODY FLUID ORDERABLES Performing Organization Address [facility] Co de Phone Number [facility] [address] [place] [phone] * PROTEIN CSF (06/21/2024 5:15 PM CDT) [facility] Protein CSF 19 15 - 40 mg/dL 06/21/2024 6:12 PM CDT [facility] Cerebral spinal fluid CEREBROSPINAL FLUID SPECIMEN / Unknown Collection / Unknown 06/21/2024 5:15 PM CDT 06/21/2024 5:39 PM CDT Anahi Neil PA-C LAB - BODY FLUID ORDERABLES [facility] [address] [place] [id number] * GLUCOSE CSF (06/21/2024 5:15 PM CDT) Pathologist [facility] Glucose CSF 59 40 - 70 mg/dL 06/21/2024 6:12 PM CDT [facility] Cerebral spinal fluid CEREBROSPINAL FLUID SPECIMEN / Unknown Collection / Unknown 06/21/2024 5:15 PM CDT 06/21/2024 5:39 PM CDT Anahi Neil PA-C LAB - BODY FLUID ORDERABLES [facility] [address] [place] [address] * MRI Angio Brain Venous Wo Cont (06/21/2024 1:51 PM CDT) Anatomical Region Laterality Modality Head Magnetic Resonan ce 06/26/2024 3:06 PM CDT Impressions 06/26/2024 3:21 PM CDT IMPRESSION: No image of the cerebral veins can be obtained despite the best effort. The study is not interpretable. lark, the MRI machine core layer machine operator, was notified. > Interpreting Provider: Curry Cross MD on 06/26/2024 3:21 PM Narrative 06/26/2024 3:21 PM CDT PROCEDURE: MRI ANGIO BRAIN VENOUS WO CONT DATE/TIME OF EXAM: 06/26/2024 2:27 PM CLINICAL INFORMATION: None relevant/not provided if blank. Indication: O26.893: Other specified related conditions, third trimester (HCC) R51.9: Headache, unspecified R51.9: Headache, unspecified EXAMINATION: Magnetic resonance venography (MRV) of the head without contrast HISTORY: R51.9: Headache, unspecified; R51.9: Headache, unspecified TECHNIQUE: MRV of the head was performed without contrast utilizing phase contrast technique. This study was performed 5 times in different sessions on 06/20/2024, 06/21/2024 as well as 06/26/2024. However, all of the images are similarly suboptimal and no flow in the veins can be visualized. Procedure Note Curry Cross MD - 06/26/2024 PROCEDURE: MRI ANGIO BRAIN VENOUS WO CONT DATE/TIME OF EXAM: 06/26/2024 2:27 PM CLINICAL INFORMATION: None relevant/not provided if blank. Indication: O26.893: Other specified related conditions, third trimester (HCC) R51.9: Headache, unspecified R51.9: Headache, unspecified EXAMINATION: Magnetic resonance venography (MRV) of the head without contrast HISTORY: R51.9: Headache, unspecified; R51.9: Headache, unspecified TECHNIQUE: MRV of the head was performed without contrast utilizingphase contrast technique. This study was performed 5 times in differentsessions on 06/20/2024, 06/21/2024 as well as 06/26/2024. However, all of the images are similarly suboptimal and no flow in the veins can be visualized. IMPRESSION: No image of the cerebral veins can be obtained despite the best effort.The study is not interpretable. lark, the MRI machine core layer machine operator, was notified. > Interpreting Provider: Curry Cross MD on 06/26/2024 3:21 PM Amilcar Shaw MD MR ORDERABLES * BLOOD TYPE VERIFICATION (06/20/2024 2:46 PM CDT) ABO Rh O POS 06/20/2024 3:1 5 PM CDT [facility] Blood Bank BLOOD SPECIMEN / Unknown Venipuncture / Unknown 06/20/2024 2:46 PM CDT 06/20/2024 2:59 PM CDT Paola Beth MD LAB - BLOOD BANK OR DERABLES [facility] [address] [place] [address] * (ABNORMAL) URINE MICROSCOPIC ONLY REFLEX TO CULTURE (06/20/2024 2:08 PM CDT) Reflex Status Culture not indicated 06/20/2024 2:33 PM CDT [facility] RBC UA 0-2 0 - 5 # /hpf 06/20/2024 2:33 PM CDT [facility] WBC UA 0-5 0 - 5 # /hpf 06/20/2024 2:33 PM CDT [facility] Bacteria UA Trace(A) None Seen 06/20/2024 2:33 PM CDT [facility] Squamous Epithelial Cells 3-5 0 - 5 /hpf 06/20/2024 2:33 PM CDT [facility] Mucus UA 4+ /LPF 06/20/2024 2:33 PM CDT [facility] Urine URINE SPECIMEN OBTAINED BY CLEAN CATCH PROCEDURE / Unknown Collection / Unknown 06/20/2024 2:08 PM CDT 06/20/2024 2:24 PM CDT Narrative [facility] - 06/20/2024 2:33 PM CDT Paola Beth MD LAB - URINALYSIS OR DERABLES [facility] [address] [place], [place] [id number] * (ABNORMAL) URINALYSIS REFLEX MICROSCOPIC REFLEX CULTURE (06/20/2024 2:08 PM CDT) Color UA Yellow Straw, Yellow 06/20/2024 2:38 PM CDT [facility] Clarity UA Clear Clear 06/20/2024 2:38 PM CDT [facility] Glucose UA Negative Negative 06/20/2024 2:38 PM CDT [facility] Bilirubin UA Negative Negative 06/20/2024 2:38 PM CDT [facility] Ketone UA 2+(A) Negative 06/20/2024 2:38 PM CDT [facility] Specific [place] UA 1.020 1.005 - 1.030 06/20/2024 2:38 PM CDT [facility] Blood UA Negative Negative 06/20/2024 2:38 PM CDT [facility] pH UA 6.0 5.0 - 8.0 pH 06/20/2024 2:38 PM CDT [facility] Protein UA 1+(A) Negative 06/20/2024 2:38 PM CDT [facility] Urobilinogen UA 4.0(A) Negative mg/dL 06/20/2024 2:38 PM CDT [facility] Nitrite UA Negative Negative 06/20/2024 2:38 PM CDT [facility] Leukocyte UA Negative Negative 06/20/2024 2:38 PM CDT [facility] Urine Microscopy Urine microscopy to follow 06/20/2024 2:38 PM CDT [facility] Reflex Status Culture not indicated 06/20/2024 2:38 PM CDT [facility] Urine URINE SPECIMEN OBTAINED BY CLEAN CATCH PROCEDURE / Unknown Collection / Unknown 06/20/2024 2:08 PM CDT 06/20/2024 2:24 PM CDT Narrative [facility] - 06/20/2024 2:38 PM CDT Ascorbic Acid can cause false negative urine strip tests for blood, glucose, nitrite, and bilirubin. Paola Beth MD LAB - URINALYSIS OR DERABLES Performing Organization Address City/[facility]/ZIP Co de Phone Number [facility] [address] [place] [address] * CULTURE STREP B (06/20/2024 2:08 PM CDT) Culture Strep B Negative for beta-hemolytic Streptococcus Group B YEMI 06/23/2024 4:08 PM CDT [facility] MICRO[facility] Microbiology MISCELLANEOUS SAMPLES / Unknown Collection / Unknown 06/20/2024 2:08 PM CDT 06/20/2024 2:24 PM CDT Paola Beth MD LAB - MICROBIOLOGY ORDERABLES Performing Organization Address City/[facility] Co de Phone Number [facility] MICROBIOLOGY [address] [place] [address], [facility] [phone] * (ABNORMAL) PROTEIN CREATININE RATIO URINE RANDOM PNL (06/20/2024 2:08 PM CDT) Protein Urine 14.9(H) <11.9 mg/dL 06/20/2024 2:46 PM CDT [facility] Creatinine Urine 163.90 mg/dL 06/20/2024 2:46 PM CDT [facility] Protein/Creatin ine Ratio Urine 0.09 06/20/2024 2:46 PM CDT [facility] Urine URINE SPECIMEN OBTAINED BY CLEAN CATCH PROCEDURE / Unknown Collection / Unknown 06/20/2024 2:08 PM CDT 06/20/2024 2:24 PM CDT Paola Beth MD LAB - URINE PIPE STRESS ENGINEER RY ORDERABLES Performing Organization Address City/[facility] Co de Phone Number [facility] [address] [place] [address] * TYPE + SCREEN PANEL (06/20/2024 1:35 PM CDT) ABO Rh O POS 06/20/2024 2:33 PM CDT [facility] Comment:History checked. Antibody Screen NEG 2:33 PM CDT [facility] Blood Bank BLOOD SPECIMEN / Unknown Lab Venipuncture / Unknown 06/20/2024 1:35 PM CDT 06/20/2024 1:46 PM CDT Paola Beth MD LAB - BLOOD BANK OR DERABLES [facility] [address] [phone] * (ABNORMAL) CBC W AUTO DIFFERENTIAL (06/20/2024 1:35 PM CDT) WBC 8.0 4.0 - 10.7 x10E9/L 06/20/2024 1:56 PM CDT [facility] RBC Count 3.79(L) 3.90 - 5.20 x10E12/L 06/20/2024 1:56 PM CDT [facility] Hemoglobin 9.5(L) 11.9 - 15.8 g/dL 06/20/2024 1:56 PM CDT [facility] Hematocrit 32.3(L) 34.8 - 46.1 % 06/20/2024 1:56 PM CDT [facility] MCV 85.2 80.0 - 98.0 fL 06/20/2024 1:56 PM CDT [facility] MCH 25.1(L) 26.7 - 33.6 pg 06/20/2024 1:56 PM CDT [facility] MCHC 29.4(L) 31.7 - 36.3 g/dL 06/20/2024 1:56 PM CDT [facility] RDW-CV 14.0 11.3 - 14.8 % 06/20/2024 1:56 PM CDT [facility] Platelet Count 223 150 - 420 x10E9/L 06/20/2024 1:56 PM CDT [facility] MPV 9.5 7.8 - 11.4 fL 06/20/2024 1:56 PM CDT [facility] Neutrophil % 73.8 41.0 - 74.0 % 06/20/2024 1:56 PM CDT [facility] Lymphocyte % 15.6(L) 17.0 - 47.0 % 06/20/2024 1:56 PM CDT [facility] Monocyte % 8.9 3.0 - 11.0 % 06/20/2024 1:56 PM CDT [facility] Eosinophil % 0.4 0.0 - 7.0 % 06/20/2024 1:56 PM CDT [facility] Basophil % 0.3 0.0 - 1.6 % 06/20/2024 1:56 PM CDT [facility] Immature Granulocytes % 1.0 0.0 - 1.0 % 06/20/2024 1:56 PM CDT [facility] Neutrophil Absolute 5.91 1.60 - 7.50 x10E9/L 06/20/2024 1:56 PM CDT [facility] Lymphocyte Absolute 1.25 1.00 - 4.40 x10E9/L 06/20/2024 1:56 PM CDT [facility] Monocyte Absolute 0.71 0.15 - 1.00 x10E9/L 06/20/2024 1:56 PM CDT [facility] Eosinophil Absolute 0.03 0.00 - 0.60 x10E9/L 06/20/2024 1:56 PM CDT [facility] Basophil Absolute 0.02 0.00 - 0.13 x10E9/L 06/20/2024 1:56 PM CDT [facility] Blood BLOOD SPECIMEN / Unknown Lab Venipuncture / Unknown 06/20/2024 1:35 PM CDT 06/20/2024 1:46 PM CDT Paola Beth MD LAB - HEMATOLOGY OR DERABLES [facility] [address] [place] [address] * (ABNORMAL) COMPREHENSIVE METABOLIC PANEL (06/20/2024 1:35 PM CDT) [facility] Glucose 67(L) 70 - 105 mg/dL 06/20/2024 2:14 PM CDT [facility] Sodium 138 136 - 145 mmol/L 06/20/2024 2:14 PM CDT [facility] Potassium 3.6 3.5 - 5.1 mmol/L 06/20/2024 2:14 PM CDT [facility] Chloride 110(H) 98 - 107 mmol/L 06/20/2024 2:14 PM CDT [facility] CO2 19(L) 22 - 29 mmol/L 06/20/2024 2:14 PM CDT [facility] Calcium 8.7 8.4 - 10.4 mg/dL 06/20/2024 2:14 PM [facility] Anion Gap 9 6 - 16 mmol/L 06/20/2024 2:14 PM [facility] BUN 4(L) 5.3 - 18.7 mg/dL 06/20/2024 2:14 PM [facility] Creatinine 0.61 0.57 - 1.11 mg/dL 06/20/2024 2:14 PM [facility] Alkaline Phosphatase 95 40 - 150 U/L 06/20/2024 2:14 PM CDT [facility] ALT 6 0 - 55 U/L 06/20/2024 2:14 PM T [facility] AST 14 5 - 34 U/L 06/20/2024 2:14 PM [facility] Protein Total 6.0(L) 6.4 - 8.3 gm/dL 06/20/2024 2:14 PM [facility] Albumin 2.7(L) 3.4 - 5.0 gm/dL 06/20/2024 2:14 PM [facility] Bilirubin Total 0.6 0.2 - 1.2 mg/dL 06/20/2024 2:14 PM [facility] eGFR by CKD-EPI >90 >=90 mL/min/1.7 3 m2 06/20/2024 2:14 PM [facility] Blood BLOOD SPECIMEN / Unknown Lab Venipuncture / Unknown 06/20/2024 1:35 PM CDT 06/20/2024 1:46 PM T Paola Beth MD LAB - CHEMISTRY ORD ERABLES [facility] [address] [place] [address] * FERRITIN (06/20/2024 1:35 PM CDT) Ferritin 22 5 - 204 ng/mL 06/20/2024 6:41 PM CDT [facility] Blood BLOOD SPECIMEN / Unknown Lab Venipuncture / Unknown 06/20/2024 1:35 PM CDT 06/20/2024 1:46 PM CDT Paola Beth MD LAB - CHEMISTRY ORD ERABLES Performing Organization Address [facility] Co de Phone Number [facility] [address] [place] [address] * MRI Brain Wo Contrast (06/20/2024 12:39 PM CDT) Anatomical Region Laterality Modality Head Magnetic Resonan ce 06/20/2024 12:4 4 PM CDT Impressions 06/20/2024 12:46 PM CDT IMPRESSION: Normal brain > Interpreting Provider: Britney Han MD on 06/20/2024 12:46 PM Narrative 06/20/2024 12:46 PM CDT PROCEDURE: MRI BRAIN WO CONTRAST DATE/TIME OF EXAM: 06/20/2024 12:39 PM CLINICAL INFORMATION: None relevant/not provided if blank. 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 TECHNIQUE: MRI of the brain was performed without contrast. FINDINGS: There is no diffusion restriction to indicate recent ischemia. Brain parenchyma has normal signal intensity and del rosario-white differentiation is preserved. No extra-axial fluid collection, mass, mass effect, midline shift or hydrocephalus. No acute or chronic hemorrhage. Sulci and ventricles are appropriate in size for age. Pituitary size is normal for . The globes and retro-orbital soft tissues are unremarkable. The paranasal sinuses and mastoid air cells are clear. Procedure Note Britney Han MD - 09/18/2024 PROCEDURE: MRI BRAIN WO CONTRAST DATE/TIME OF EXAM: 06/20/2024 12:39 PM CLINICAL INFORMATION: None relevant/not provided if blank. 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 TECHNIQUE: MRI of the brain was performed without contrast. FINDINGS: There is no diffusion restriction to indicate recent ischemia. Brain parenchyma has normal signal intensity and del rosario-white differentiation is preserved. No extra-axial fluid collection, mass, mass effect, midline shift or hydrocephalus. No acute or chronic hemorrhage. Sulci and ventricles are appropriate in size for age. Pituitary size is normal for . The globes and retro-orbitalsoft tissues are unremarkable. The paranasal sinuses and mastoid air cellsare clear. IMPRESSION: Normal brain > Interpreting Provider: Britney Han MD on 06/20/2024 12:46 PM Madhuri Alegria MD MR ORDERABLES * SONOGRAM - COMPLETE (06/19/2024 1:47 PM CDT) Anatomical Region Laterality Modality Other 06/19/2024 1:47 PM CDT Narrative 06/19/2024 3:15 PM CDT [facility] [place] PHONE: FAX: [email or web address]. Name: FLORENCIO LUANACHARITO Vivas. No: [id number] Study Date: 06/19/2024 1:47pm , Age: 05 1990, 34 Pregnancies: 5, Para 3023 Height: 66 in Weight: 144 lb LMP: Unknown GA by US: 33w2d DANIELLA: 08/05/2024 GA Selected: 32w0d (From Known E) DANIELLA: 08/14/2024 Referring MD: Bon Bhagat MD Cloth Coverer: Shelby Lynn RDMS CPT4: 98314 BMI: 23.24 Hist/Ind: Surrogate -IVF Loss of Vision During MEASUREMENTS & AGE GROWTH EVALUATION Measurement GA Range Srce %for GA Ratios ----- ---- ------- BPD 8.1 cm 32w3d (35m7k-21u4t) Hadl BPD 52% FL/BPD 0.79 (0.71 - 0.87) HC 29.6 cm 32w5d (63w0e-03j0c) Hadl HC 29% FL/AC 0.21 (0.20 - 0.24) AC 30.3 cm 34w2d (32r4w-34i2b) Hadl AC 95% HC/AC 0.97 (0.95 - 1.14) FL 6.4 cm 33w0d (26y5a-50j4o) Hadl FL 66% CI 0.77 (0.70 - 0.86) HL 5.8 cm 33w3d (60y8v-24o3y) Enrique HL 73% Cere 4.3 cm 33w6d (90r8x-43m3w) Juni Cere86% GA for sonogram 33w2d (84z5t-88i8i) Weight Estimate: based on (BPD,HC,AC,FL,Cere) Avg Weight: 2229 gm (1904-2555gm) Had : 4lbs, 14oz Normal: 1953 gm (1465-2441gm) Had Wt% 86% for 32w0d Heart Rate: 150 bpm Amniotic Fluid Index: 21.0cm (08.6-24.2) Q1: 4.3cm Q2: 7.8cm Q3: 4.1cm Q4: 4.9cm PROCEDURE, TECHNIQUE Technique: transabdominal EVAL, PLACENTA Presentation: cephalic Placenta: posterior Heart Rate: 150 bpm Amniotic Fluid Volume: normal Anatomy!Normal!Abnormal!Suboptimal!Prev. Seen!Comments Cranium ! x ! ! ! ! Mdl (CSP/Thal! x ! ! ! ! Ventricles ! x ! ! ! ! Choroid Plexu! x ! ! ! ! Cerebellum ! x ! ! ! ! Cisterna M. ! x ! ! ! ! Nuchal Fold ! x ! ! ! ! Orbits ! ! ! x ! ! Profile ! x ! ! ! ! Nasal Bone ! x ! ! ! ! Lip ! x ! ! ! ! Spine ! x ! ! ! ! Lungs ! x ! ! ! ! 4 Chamber Hea! x ! ! ! ! LVOT ! x ! ! ! ! RVOT ! x ! ! ! ! 3 Vessel View! x ! ! ! ! 3 Vessel Trac! x ! ! ! ! Cross-over ! x ! ! ! ! Ductal Arch ! x ! ! ! ! Aortic Arch ! x ! ! ! ! Caval View ! x ! ! ! ! Situs ! x ! ! ! ! Diaphragm ! x ! ! ! ! Stomach ! x ! ! ! ! Bowel ! x ! ! ! ! Kidneys ! x ! ! ! ! Bladder ! x ! ! ! ! 3 Vessel Cord! x ! ! ! ! Cord In! x ! ! ! ! Upper Extremi! x ! ! ! ! Hands ! x ! ! ! ! Lower Extremi! x ! ! ! ! Feet ! ! ! x ! !unremarkable left, suboptimal right External Radha! ! ! x ! ! Placental Cor! x ! ! ! ! Maternal Adne! x ! ! ! ! CLINICAL SUMMARY A single fetus is seen in cephalic presentation. The measurements today are consistent with appropriate growth for the DANIELLA provided. The DANIELLA is based on a prior ultrasound examination (confirmed). The amniotic fluid volume is within normal limits. IMPRESSION: Single, live, intrauterine at 32w0d size is within normal limits Amniotic fluid volume: within normal limits No major malformations were seen within the limitations of ultrasound. RECOMMEND: Ultrasound in 4 weeks for growth and well being Thank you for allowing us the opportunity to care for your patient. Madhuri Alegria MD <Electronic Signature> 06/19/2024 03:15pm Bon Bhagat MD [facility] ORDERABLES * SKIN TEST PPD - POINT OF CARE (01/23/2021 3:04 PM CDT) PPD 0mm, normal [facility] Other MISCELLANEOUS SAMPLE S / Unknown 01/23/2021 3:04 PM CDT Jackie Bacon [facility] - POINT OF CARE ORDERABLES [facility] [address] [place] [address], [facility] [phone] Care Teams Interventional Radiology Rn Relationship Specialty Start Date End Date Simón Broderick MD PCP - General Internal Medicine 01/21/21
--- OUTSIDE RECORDS SUMMARY | 2024-11-16 09:57 | XMS_ITS | Clinical Summary ---
Author Organization [facility] Address [address] [place] [address] Care Team Providers Care Executive Director Of Nursing Name Role Phone Simón Broderick MD Primary Care Provider [phone] Source Comments [facility],non-owned Affiliates and Associated Physician Practices is amultiple site organization consisting of ambulatory clinics and hospital sitesin [place], [place], [place] and [place]. This disclosure is being madepursuant to the Care Everywhere program and may not contain all information available regarding this patient. Last updated 18.[facility] Allergies No known active allergies Medications * [...] complications. She was seen at the [facility] who recommended urgent MRI/MRV and LP. Case [...] medical care, and heating? Patient declined 06/20/2024 [facility] - Occupational Stress Questionnaire Answer Date [...] place to sleep or slept in a senior living (including now)? No 06/20/2024 Sex and Gender [...] Mass Index 24.86 06/22/2024 1:00 PM CDT Plan of Treatment Health Maintenance Due Date Last Done Comments PAP SMEAR 1990 HIV SCREENING 02/17/2007 HPV VACCINE (2 - 3-dose series) 08/22/2009 07/25/2009 HEPATITIS C SCREENING 02/13/2010 COVID-19 VACCINE ( season) 2024 INFLUENZA VACCINE (#1) 2024 DEPRESSION SCREENING 10/03/2024 MEDICARE AWV CALENDAR YEAR 2024 DTAP/TDAP/TD VACCINES (5 - Td or Tdap) 01/21/2031 01/21/2021, 07/25/2009, 05/30/2003, Additional history exists ZOSTER VACCINE (1 of 2) 02/17/2042 HIB VACCINE Completed 07/01/1993, 12/01, 1992, Additional history exists HEPATITIS B VACCINE Completed 08/05/2003, 05/30/2003, 05/03/2002 MENINGOCOCCAL VACCINE Completed 07/25/2009 MENINGOCOCCAL (Group B) VACCINE Aged Out No longer eligible based on patient's age to complete this topic PNEUMOCOCCAL VACCINE Aged Out No long er eligible based on patient's age to complete this topic Respiratory Syncytial Virus (RSV) Vaccine Pt: or over 60 yrs (No Doses Required) Completed Procedures Procedure Name Priority Date/Time Associated Diagnosis Comments CULTURE STREP B Routine 06/20/2024 2:08 PM CDT from Last 3 Months or Most Recently Relevant to Health Maintenance Results * CULTURE STREP B (06/20/2024 2:08 PM CDT) Culture Strep B Negative for beta-hemolytic Streptococcus Group B YEMI 06/23/2024 4:08 PM CDT [facility] Microbiology MISCELLANEOUS SAMPLES / Unknown Collection / Unknown 06/20/2024 2:08 PM CDT 06/20/2024 2:24 PM CDT Paola Beth MD LAB - MICROBIOLOGY ORDERABLES [facility] [address] [place] [address], [facility] [phone] from Last 3 Months or Most Recently Relevant to Health Maintenance Advance Directives * Full Code (Latest Code Status on File) Date Activated Date Inactivated Comments 06/20/2024 1:13 PM 06/22/2024 7:41 PM Care Teams Executive Director Of Nursing Relationship Specialty Start Date End Date Simón Broderick MD PCP - General Internal Medicine 01/21/21
--- OUTSIDE RECORDS SUMMARY | 2024-11-16 09:57 | XMS_ITS | Encounter Summary ---
Author Organization [facility] Facility Care Team Providers Care Maintenance Service Supervisor Name Role Phone No, Physician Primary Care Provider [phone] Jese Ashley MD Primary Care Provider [phone] Simón Broderick MD Primary Care Provider [phone] Encounter Details Date Type Department Care Team (Latest Contact Info) Description 04/18/2015 Orders Only [facility] ProviderFernando MD [address] [place] [address] Social History Tobacco Use Types Packs/Day Years Used Date Smoking Tobacco: Never Assessed Comments Unknown Sex and Gender Information Value Date Recorded Sex Assigned at Not on file Legal Sex Female 7:59 PM COMPUTER TRAINING SPECIALIST Gender Identity Not on file Sexual Orientation Not on file documented as of this encounter Plan of Treatment Not on file documented as of this encounter Procedures Procedure Name Priority Date/Time Associated Diagnosis Comments CARDIOLOGY REPORT 11/25/2016 12: 00 AM COMPUTER TRAINING SPECIALIST documented in this encounter Results * CARDIOLOGY REPORT (11/25/2016 12:00 AM COMPUTER TRAINING SPECIALIST) Anatomical Region Laterality Modality Other Narrative 11/25/2016 12:00 AM COMPUTER TRAINING SPECIALIST Ordered by an unspecified provider. us Historical Provider [facility] LUKAS[facility] RAMIREZ Final Result documented in this encounter Visit Diagnoses Not on filedocumented in this encounter Additional Health Concerns Infection Onset Date Last Indicated Resolved Time COVID: Suspected 08/29/2022 08/29/2022 08/29/2022 2:17 PM COMPUTER TRAINING SPECIALIST documented as of this encounter Care Teams Maintenance Service Supervisor Relationship Specialty Start Date End Date No, Physician PCP - General 05/07/19 09/01/20 Jese Ashley MD [address] [address] PCP - General Internal Medicine 09/02/20 08/30/22 Simón Broderick MD [address] [place] [address] PCP - General Internal Medicine 08/31/22 documented as of this encounter
--- OUTSIDE RECORDS SUMMARY | 2024-11-16 09:57 | XMS_ITS | Encounter Summary ---
Author Organization [facility] Facility Care Team Providers Care Manager Reporting Name Role Phone No, Physician Primary Care Provider Jese Ashley MD Primary Care Provider [phone] Simón Broderick MD Primary Care Provider [phone] Encounter Details Date Type Department Care Team (Latest Contact Info) Description 07/27/2015 Orders Only [facility] Provider, MD Fernando [address] [place] [address] Social History Tobacco Use Types Packs/Day Years Used Date Smoking Tobacco: Never Assessed Comments Unknown Sex and Gender Information Value Date Recorded Sex Assigned at Not on file Legal Sex Female 7:59 PM DENTAL FINANCIAL COORDINATOR Gender Identity Not on file Sexual Orientation Not on file documented as of this encounter Plan of Treatment Not on file documented as of this encounter Procedures Procedure Name Priority Date/Time Associated Diagnosis Comments SCAN - LABS 07/27/2015 12:00 AM CDT SCAN - LABS 07/27/2015 12:00 AM CDT documented in this encounter Results * SCAN - LABS (07/27/2015 12:00 AM CDT) Narrative 07/27/2015 12:00 AM CDT Ordered by an unspecified provider. us Historical Provider Final Res ult * SCAN - LABS (07/27/2015 12:00 AM CDT) Narrative 07/27/2015 12:00 AM CDT Ordered by an unspecified provider. us Historical Provider Final Res ult documented in this encounter Visit Diagnoses Not on filedocumented in this encounter Additional Health Concerns Infection Onset Date Last Indicated Resolved Time COVID: Suspected 08/29/2022 08/29/2022 08/29/2022 2:17 PM DENTAL FINANCIAL COORDINATOR documented as of this encounter Care Teams Manager Reporting Relationship Specialty Start Date End Date No, Physician PCP - General 05/07/19 09/01/20 Jese Ashley MD [address] [address] PCP - General Internal Medicine 09/02/20 08/30/22 Simón Broderick MD [address] [place] [address] PCP - General Internal Medicine 08/31/22 documented as of this encounter
--- OUTSIDE RECORDS SUMMARY | 2024-11-16 09:57 | XMS_ITS | Referral Summary ---
Author Organization [facility] Address [address] [place] [address] Care Team Providers Care Laundry Presser Name Role Phone Simón Broderick MD Primary Care Provider [phone] Encounters Date Type Department Care Team Description 09/22/2024 9:01 AM CHANGE DIRECTOR - 09/22/2024 10:08 AM [facility] Emergency [facility] Emergency Department [address] [place] [address] De Quervain's tenosynovitis, bilateral (Primary Dx) Discharge Disposition: Discharge to home or self care from Last 3 Months Allergies No known active allergies Medications tiZANidine (ZANAFLEX) 4 mg tablet Take 1 tab po every 6 hours up to 3 times a day prn muscle spasms/back pain 30 tablet 9 Active butalbital-acet aminophen-caffe ine (ESGIC) 50-325-40 mg per tablet Take 1 tablet by mouth every 4 (four) hours as needed for headaches 12 tablet 2 Active cyclobenzaprine (FLEXERIL) 10 mg tablet Take 1 tablet (10 mg total) by mouth 3 (three) times a day as needed for muscle spasms Active SUMAtriptan (IMITREX) 50 mg tabletIndicatio ns:Migraine Take 1 tablet (50 mg total) by mouth once as needed for migraine (headache) May repeat one time after 2 hours if needed. 12 tablet 5 3 Active acetaminophen (TYLENOL) 325 mg tablet Take 2 tablets (650 mg total) by mouth every 6 (six) hours as needed for pain 60 tablet 3 Active ibuprofen (ADVIL,MOTRIN) 600 mg tabletIndicatio ns:Pain Take 1 tablet (600 mg total) by mouth every 6 (six) hours as needed for pain 30 tablet 3 Active acetaZOLAMIDE (DIAMOX) 250 mg tablet Take 1 tablet (250 mg total) by mouth daily 30 tablet 3 3 Active dorzolamide (TRUSOPT) 2 % ophthalmic solution Administer 1 drop into both eyes 2 (two) times a day 10 mL 11 4 Active prednisoLONE acetate (PRED FORTE) 1 % ophthalmic suspension SHAKE LIQUID AND INSTILL 1 DROP IN BOTH EYES THREE TIMES DAILY 4 Active Active Problems Problem Noted Date Diagnosed Date Cystoid macular edema of both eyes 11/24/2022 Retinitis pigmentosa 11/24/2022 Assessment & Plan (02/01/2024 1:27 PM CDT): She is now following up at [facility]- recommend that she continue to f/u with them. Cystoid macular edema (CME) with minimal worsening- she is on pred forte (PF) TID and she was switched to this from dorzolamide at [facility] since she is . 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 Resolved spontaneously over the course of minutes. No new pathology evident on exam today. Likely light adaptation issue. F/u as scheduled with retina service, call sooner with any worsening vision. Assessment & Plan (02/16/2023 4:49 PM CDT): New referral 11/24/22 for possible RP, s/p cataract surgery Has been following dr. dumont and was on methazolamide and dorzo Started on diamox with good CME improvement, Diamox 250mg tapering to 1 pill daily, good egfr 08/2022. Discussed stopping diamox in future, patient feels there is subjective improvement, will continue. Continue dorzolamide BID Genetics test kit provided - will follow up on results and reach out to patient ffERG pending Patient plugged into LV - has been helpful Her three young children (10 and 7 and 4) are pending ophthalmic exams Will limit light exposure with DFEs and continue with OCTs Following PCP for routine labs, will order BMP if patient does not already have it recently Assessment & Plan (11/25/2022 6:59 AM CHANGE DIRECTOR): New referral 11/24/22 for possible RP, s/p cataract surgery Has been following dr. dumont On methazolamide and dorzolamide Residual CME Will trial diamox 250mg BID instead, good egfr with recent labs Continue dorzolamide BID Genetics test kit provided mfERG and ffERG for baseline and future trending Re-referral to [facility] for devices Her two young children have ophthalmic exams scheduled RTC 3 months to discuss genetic results, ERG, OCT Dizziness 11/25/2016 Dyspnea 11/25/2016 Syncope 11/25/2016 Encounter for supervision of normal in third trimester 07/21/2015 Social History Tobacco Use Types Packs/Day Years Used Date Smoking Tobacco: Never Smokeless Tobacco: Never Tobacco Cessation:Counseling Given: Not Answered Personal Safety Answer Date Recorded Have you ever been in or are you currently in a harmful physical or emotional relationship or is someone making you feel afraid or unsafe? Denies 09/22/2024 Comments No Sex and Gender Information Value Date Recorded Sex Assigned at Not on file Legal Sex Female 7:59 PM CHANGE DIRECTOR Gender Identity Not on file Sexual Orientation Not on file Last Filed Vital Signs Vital Sign Reading Time Taken Comments Blood Pressure 122/79 09/22/2024 9:03 AM CHANGE DIRECTOR Pulse 79 09/22/2024 9:03 AM CHANGE DIRECTOR Temperature 36.8 C (98.2 F) 09/22/2024 9:03 AM CHANGE DIRECTOR Respiratory Rate 16 09/22/2024 9:03 AM CHANGE DIRECTOR Oxygen Saturation 100% 09/22/2024 9:03 AM CHANGE DIRECTOR Inhaled Oxygen Concentration - - Weight 63.5 kg (140 lb) 09/22/2024 9:03 AM CHANGE DIRECTOR Height 167.6 cm (5' 6 ) 09/22/2024 9:03 AM CHANGE DIRECTOR Body Mass Index 22.6 09/22/2024 9:03 AM CHANGE DIRECTOR Plan of Treatment Not on file Insurance MEDICARE SOLUTIONS IDPA MEDICARE SOLUTIONS IDPA * Guarantor: [facility] Account Type Relation to Patient Date of Phone Billing Address Workers Comp [employer]er [employer] Care Teams Laundry Presser Relationship Specialty Start Date End Date Simón Broderick MD [address] [place] [address] PCP - General Internal Medicine 08/31/22
--- OUTSIDE RECORDS SUMMARY | 2024-11-16 09:57 | XMS_ITS | Encounter Summary ---
Author Organization [facility] Facility Care Team Providers Care Analyst Business Analysis Name Role Phone No, Physician Primary Care Provider [phone] Jese Ashley MD Primary Care Provider [phone] Simón Broderick MD Primary Care Provider Encounter Details Date Type Department Care Team (Latest Contact Info) Description 07/08/2015 Orders Only [facility] ProviderFernando MD [address] [place] [address] Social History Tobacco Use Types Packs/Day Years Used Date Smoking Tobacco: Never Assessed Comments Unknown Sex and Gender Information Value Date Recorded Sex Assigned at Not on file Legal Sex Female 7:59 PM BAKER BREAD Gender Identity Not on file Sexual Orientation Not on file documented as of this encounter Plan of Treatment Not on file documented as of this encounter Procedures Procedure Name Priority Date/Time Associated Diagnosis Comments CARDIOLOGY REPORT 11/25/2016 12: 00 AM BAKER BREAD documented in this encounter Results * CARDIOLOGY REPORT (11/25/2016 12:00 AM BAKER BREAD) Anatomical Region Laterality Modality Other Narrative 11/25/2016 12:00 AM BAKER BREAD Ordered by an unspecified provider. us Historical Provider [facility] LUKASZ RAMIREZ Final Result documented in this encounter Visit Diagnoses Not on filedocumented in this encounter Additional Health Concerns Infection Onset Date Last Indicated Resolved Time COVID: Suspected 08/29/2022 08/29/2022 08/29/2022 2:17 PM BAKER BREAD documented as of this encounter Care Teams Analyst Business Analysis Relationship Specialty Start Date End Date No, Physician PCP - General 05/07/19 09/01/20 Jese Ashley MD [address] [address] PCP - General Internal Medicine 09/02/20 08/30/22 Simón Broderick MD [address] [place] [address] PCP - General Internal Medicine 08/31/22 documented as of this encounter
--- OUTSIDE RECORDS SUMMARY | 2024-11-16 09:57 | XMS_ITS | Clinical Summary ---
Author Organization [facility] Address [address] [place] [address] Care Team Providers Care Service Worker Helper Name Role Phone Simón Broderick MD Primary Care Provider [phone] Allergies No known active allergies Medications tiZANidine [...] CDT): She is now following up at [facility]- recommend that she continue to f/u with them. Cystoid macular edema (CME) with minimal worsening- she is on pred forte (PF) TID and she was switched to this from dorzolamide at [facility] since she is . Otherwise stable, f/u at [facility] Assessment & Plan (06/10/2023 4:39 PM CDT): [...] recently Assessment & Plan (11/25/2022 6:59 AM ACCOUNTS PAYABLE LEAD): New referral 11/24/22 for possible RP, s/p cataract surgery Has been following dr. dumont On methazolamide and dorzolamide Residual CME Will trial diamox 250mg BID instead, good egfr with recent labs Continue dorzolamide BID Genetics test kit provided mfERG and ffERG for baseline and future trending [facility] Her two young children have ophthalmic exams scheduled RTC 3 months to discuss genetic results, ERG, OCT Dizziness 11/25/2016 Dyspnea 11/25/2016 Syncope 11/25/2016 Encounter for supervision of normal in third trimester 07/21/2015 Encounters Date Type Department Care Team Description 09/22/2024 9:01 AM ACCOUNTS PAYABLE LEAD - 09/22/2024 10:08 AM ACCOUNTS PAYABLE LEAD Emergency [facility] Emergency Department [address] [place] [address] De Quervain's tenosynovitis, bilateral (Primary Dx) Discharge Disposition: Discharge to home or self care from Last 3 Months Social History Tobacco Use Types Packs/Day Years [...] on file Legal Sex Female 7:59 PM ACCOUNTS PAYABLE LEAD Gender Identity Not on file Sexual Orientation Not on file Obstetrics History Last Filed Vital Signs Vital Sign Reading Time Taken Comments Blood Pressure 122/79 09/22/2024 9:03 AM ACCOUNTS PAYABLE LEAD Pulse 79 09/22/2024 9:03 AM ACCOUNTS PAYABLE LEAD Temperature 36.8 C (98.2 F) 09/22/2024 9:03 AM ACCOUNTS PAYABLE LEAD Respiratory Rate 16 09/22/2024 9:03 AM ACCOUNTS PAYABLE LEAD Oxygen Saturation 100% 09/22/2024 9:03 AM ACCOUNTS PAYABLE LEAD Inhaled Oxygen Concentration - - Weight 63.5 kg (140 lb) 09/22/2024 9:03 AM ACCOUNTS PAYABLE LEAD Height 167.6 cm (5' 6 ) 09/22/2024 9:03 AM ACCOUNTS PAYABLE LEAD Body Mass Index 22.6 09/22/2024 9:03 AM ACCOUNTS PAYABLE LEAD Plan of Treatment Health Maintenance Due Date Last Done Comments Cervical Cancer Screening 1992 Depression Screening 1992 Hepatitis C Screening 1992 Varicella Vaccines (2 of 2 - 2-dose childhood series) 07/26/2002 05/03/2002 HPV Vaccines (2 - 3-dose series) 08/22/2009 07/25/2009 Regular Well Visit/Exam 18-64 02/17/2010 Influenza Vaccine (#1) 2024 DTaP/Tdap/Td Vaccine (8 - Td or Tdap) 01/21/2031 01/21/2021, 07/25/2009, 05/30/2003, Additional history exists Hepatitis B Screening Completed 08/05/2003 , 05/30/2003, 05/03/2002 Pneumococcal vaccine <65 Aged Out No longer eligible based on patient's age to complete this topic Insurance MEDICARE SOLUTIONS IDPA MEDICARE SOLUTIONS IDPA * Guarantor: [facility] Account Type Relation to Patient Date of Phone Billing Address Workers Comp Employer [employer] Care Teams Service Worker Helper Relationship Specialty Start Date End Date Simón Broderick MD [address] [place] [address] PCP - General Internal Medicine 08/31/22
== END 2024-11-16 09:45 | disposition home or self-care (01) ==
PROVIDERS: PCP Internal Medicine; Visit Provider Internal Medicine
DX: M19.031 Primary osteoarthritis, right wrist (principal); M19.032 Primary osteoarthritis, left wrist; M65.4 Radial styloid tenosynovitis [de Quervain]
CPT/HCPCS: 73221

== ENCOUNTER 2025-01-01 14:02 | Outpatient (CLI) | payer MEDICARE, MEDICAID, SELFPAY ==
[2025-01-01 14:46] LABS: Hematocrit 40.3 % (37.0-47.0); Hemoglobin 12.8 g/dL (12.0-15.0); Mean Corpuscular HGB Conc 31.8 g/dl (32-36); Mean Corpuscular Hemoglobin 27.6 pg (26-34); Mean Platelet Volume 9.5 fl (7.4-10.4); Platelet Count Result 294 k/mm3 (150-375); Red Blood Count 4.63 M/mm3 (4.2-5.4); Red Cell Distribution Width 12.7 % (11.5-14.5); White Blood Count 7.3 K/mm3 (4.5-10.0)
--- OUTSIDE RECORDS SUMMARY | 2025-01-01 15:21 | XMS_ITS | Referral Summary ---
Author Organization [facility] Address [address] [place] [address] Care Team Providers Care Risk Control Officer Name Role Phone Simón Broderick MD Primary Care Provider [phone] Allergies No known active allergies Medications tiZANidine [...] CDT): She is now following up at [facility]- recommend that she continue to f/u with them. 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 Otherwise stable, f/u at [facility] Assessment & Plan (06/10/2023 4:39 PM [...] recently Assessment & Plan (11/25/2022 6:59 AM DISTRIBUTION WAREHOUSE MANAGER): New referral 11/24/22 for possible RP, s/p [...] on file Legal Sex Female 7:59 PM DISTRIBUTION WAREHOUSE MANAGER Gender Identity Not on file Sexual Orientation Not on file Last Filed Vital Signs Vital Sign Reading Time Taken Comments Blood Pressure 122/79 09/22/2024 9:03 AM DISTRIBUTION WAREHOUSE MANAGER Pulse 79 09/22/2024 9:03 AM DISTRIBUTION WAREHOUSE MANAGER Temperature 36.8 C (98.2 F) 09/22/2024 9:03 AM DISTRIBUTION WAREHOUSE MANAGER Respiratory Rate 16 09/22/2024 9:03 AM DISTRIBUTION WAREHOUSE MANAGER Oxygen Saturation 100% 09/22/2024 9:03 AM DISTRIBUTION WAREHOUSE MANAGER Inhaled Oxygen Concentration - - Weight 63.5 kg (140 lb) 09/22/2024 9:03 AM DISTRIBUTION WAREHOUSE MANAGER Height 167.6 cm (5' 6 ) 09/22/2024 9:03 AM DISTRIBUTION WAREHOUSE MANAGER Body Mass Index 22.6 09/22/2024 9:03 AM DISTRIBUTION WAREHOUSE MANAGER Plan of Treatment Not on file Insurance [facility] MEDICARE ADVANTAGE IDPA [facility] MEDICARE ADVANTAGE IDPA * Guarantor: [facility] Account Type Relation to Patient Date of Phone Billing Address Workers Comp Employer [employer] Care Teams Risk Control Officer Relationship Specialty Start Date End Date Simón Broderick MD [address] [place] [address] PCP - General Internal Medicine 08/31/22
--- OUTSIDE RECORDS SUMMARY | 2025-01-01 15:21 | XMS_ITS | CONTINUITY OF CARE DOCUMENT ---
Author Name alise carrero Address Unknown Organization [facility] Address [address] [place] [address] Phone [phone] Care Team Providers Care Despatch Clerk Name Role Phone Sae Clayton MD Unavailable [phone] Sae Clayton MD Unavailable [phone] INSURANCE PROVIDERS Payer name Policy type / Coverage type [place] [employer] [place] [employer] MEDICAID (2) Medicaid [id number]
--- OUTSIDE RECORDS SUMMARY | 2025-01-01 15:21 | XMS_ITS | Clinical Summary ---
Author Organization [facility] Address [address] [place] [address] Care Team Providers Care Machined Parts Quality Inspector Name Role Phone Simón Broderick MD Primary Care Provider [phone] Allergies No known active allergies Medications tiZANidine [...] CDT): She is now following up at [facility]- recommend that she continue to f/u with them. 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 Otherwise stable, f/u at [facility] Assessment & Plan (06/10/2023 4:39 PM [...] recently Assessment & Plan (11/25/2022 6:59 AM JAVA ANALYST): New referral 11/24/22 for possible RP, s/p cataract surgery Has been following dr. dumont On methazolamide and dorzolamide Residual CME Will trial diamox 250mg BID instead, good egfr with recent labs Continue dorzolamide BID Genetics test kit provided mfERG and ffERG for baseline and future trending Re-referral to [facility] devices Her two young [...] on file Legal Sex Female 7:59 PM JAVA ANALYST Gender Identity Not on file Sexual Orientation Not on file Obstetrics History Last Filed Vital Signs Vital Sign Reading Time Taken Comments Blood Pressure 122/79 09/22/2024 9:03 AM JAVA ANALYST Pulse 79 09/22/2024 9:03 AM JAVA ANALYST Temperature 36.8 C (98.2 F) 09/22/2024 9:03 AM JAVA ANALYST Respiratory Rate 16 09/22/2024 9:03 AM JAVA ANALYST Oxygen Saturation 100% 09/22/2024 9:03 AM JAVA ANALYST Inhaled Oxygen Concentration - - Weight 63.5 kg (140 lb) 09/22/2024 9:03 AM JAVA ANALYST Height 167.6 cm (5' 6 ) 09/22/2024 9:03 AM JAVA ANALYST Body Mass Index 22.6 09/22/2024 9:03 AM JAVA ANALYST Plan of Treatment Health Maintenance Due Date [...] patient's age to complete this topic Insurance [facility] MEDICARE ADVANTAGE IDPA [facility] MEDICARE ADVANTAGE IDPA * Guarantor: [facility] Account Type Relation to Patient Date of Phone Billing Address Workers Comp Employer [employer] Care Teams Machined Parts Quality Inspector Relationship Specialty Start Date End Date Simón Broderick MD [address] [place] [address] PCP - General Internal Medicine 08/31/22
--- OUTSIDE RECORDS SUMMARY | 2025-01-01 15:21 | XMS_ITS | Clinical Summary ---
Author Organization [facility] Address [address] [place] [address] Care Team Providers Care Wet Wash Assembler Name Role Phone Simón Broderick MD Primary Care Provider [phone] Source Comments [facility],non-owned Affiliates and Associated Physician Practices is amultiple site organization consisting of ambulatory clinics and hospital sitesin [place], [place], [place] and [place]. This disclosure is being madepursuant to the Care Everywhere program and may not contain all information available regarding this patient. Last updated 18.[facility] Allergies No known active allergies Medications * [...] complications. She was seen at the [facility] who recommended urgent MRI/MRV and LP. Case [...] medical care, and heating? Patient declined 06/20/2024 [facility] Occupat ional [facility] - Occupational Stress Questionnaire Answer Date [...] place to sleep or slept in a assisted (including now)? No 06/20/2024 Sex and Gender [...] B VACCINE Completed 08/05/2003, 05/30/2003, 05/03/2002 MENINGOCOCCAL GROUPS A/C/Y/W VACCINE Completed 07/25/2009 MENINGOCOCCAL (Group B) VACCINE SHARED DECISION-MAKING Aged Out No longer eligible based on [...] Group B YEMI 06/23/2024 4:08 PM CDT [facility] MICROBIOLOGY Microbiology MISCELLANEOUS SAMPLES / Unknown Collection / Unknown 06/20/2024 2:08 PM CDT 06/20/2024 2:24 PM CDT Paola Beth MD LAB - MICROBIOLOGY ORDERABLES [facility] [address] [place] [address], [facility] [phone] from Last 3 Months or Most Recently Relevant to Health Maintenance Advance Directives * Full Code (Latest Code Status on File) Date Activated Date Inactivated Comments 06/20/2024 1:13 PM 06/22/2024 7:41 PM Care Teams Wet Wash Assembler Relationship Specialty Start Date End Date Simón Broderick MD PCP - General Internal Medicine 01/21/21
--- OUTSIDE RECORDS SUMMARY | 2025-01-01 15:21 | XMS_ITS | Encounter Summary ---
Author Organization [facility] Facility Care Team Providers Care Hide Curer Name Role Phone No, Physician Primary Care Provider [phone] Jese Ashley MD Primary Care Provider [phone] Simón Broderick MD Primary Care Provider [phone] Encounter Details Date Type Department Care Team (Latest Contact Info) Description 07/08/2015 Orders Only [facility]IN[facility] ProviderFernando MD [address] [place] [address] Social History Tobacco Use Types Packs/Day Years Used Date Smoking Tobacco: Never Assessed Comments Unknown Sex and Gender Information Value Date Recorded Sex Assigned at Not on file Legal Sex Female 7:59 PM MEDICAL AND HEALTH SERVICES MANAGER Gender Identity Not on file Sexual Orientation Not on file documented as of this encounter Plan of Treatment Not on file documented as of this encounter Procedures Procedure Name Priority Date/Time Associated Diagnosis Comments CARDIOLOGY REPORT 11/25/2016 12: 00 AM MEDICAL AND HEALTH SERVICES MANAGER documented in this encounter Results * CARDIOLOGY REPORT (11/25/2016 12:00 AM MEDICAL AND HEALTH SERVICES MANAGER) Anatomical Region Laterality Modality Other Narrative 11/25/2016 12:00 AM MEDICAL AND HEALTH SERVICES MANAGER Ordered by an unspecified provider. us Historical Provider [facility] LUKASZ RAMIREZ Final Result documented in this encounter Visit Diagnoses Not on filedocumented in this encounter Additional Health Concerns Infection Onset Date Last Indicated Resolved Time COVID: Suspected 08/29/2022 08/29/2022 08/29/2022 2:17 PM MEDICAL AND HEALTH SERVICES MANAGER documented as of this encounter Care Teams Hide Curer Relationship Specialty Start Date End Date No, Physician PCP - General 05/07/19 09/01/20 Jese Ashley MD [address] [address] PCP - General Internal Medicine 09/02/20 08/30/22 Simón Broderick MD [address] [place] [address] PCP - General Internal Medicine 08/31/22 documented as of this encounter
--- OUTSIDE RECORDS SUMMARY | 2025-01-01 15:21 | XMS_ITS | Encounter Summary ---
Author Organization [facility] Facility Care Team Providers Care Shift Supervisor Film Processing Name Role Phone No, Physician Primary Care Provider [phone] Jese Ashley MD Primary Care Provider [phone] Simón Broderick MD Primary Care Provider [phone] Encounter Details Date Type Department Care Team (Latest Contact Info) Description 04/18/2015 Orders Only [facility]IN[facility] ProviderFernando MD [address] [place] [address] Social History Tobacco Use Types Packs/Day Years Used Date Smoking Tobacco: Never Assessed Comments Unknown Sex and Gender Information Value Date Recorded Sex Assigned at Not on file Legal Sex Female 7:59 PM ACCOUNT RECEIVABLE CLERK Gender Identity Not on file Sexual Orientation Not on file documented as of this encounter Plan of Treatment Not on file documented as of this encounter Procedures Procedure Name Priority Date/Time Associated Diagnosis Comments CARDIOLOGY REPORT 11/25/2016 12: 00 AM ACCOUNT RECEIVABLE CLERK documented in this encounter Results * CARDIOLOGY REPORT (11/25/2016 12:00 AM ACCOUNT RECEIVABLE CLERK) Anatomical Region Laterality Modality Other Narrative 11/25/2016 12:00 AM ACCOUNT RECEIVABLE CLERK Ordered by an unspecified provider. us Historical Provider [facility] CARDIAC [facility] LUKASZ RAMIREZ Final Result documented in this encounter Visit Diagnoses Not on filedocumented in this encounter Additional Health Concerns Infection Onset Date Last Indicated Resolved Time COVID: Suspected 08/29/2022 08/29/2022 08/29/2022 2:17 PM ACCOUNT RECEIVABLE CLERK documented as of this encounter Care Teams Shift Supervisor Film Processing Relationship Specialty Start Date End Date No, Physician PCP - General 05/07/19 09/01/20 Jese Ashley MD [address] [address] PCP - General Internal Medicine 09/02/20 08/30/22 Simón Broderick MD [address] [place] [address] PCP - General Internal Medicine 08/31/22 documented as of this encounter
--- OUTSIDE RECORDS SUMMARY | 2025-01-01 15:21 | XMS_ITS | Encounter Summary ---
Author Organization [facility] Facility Care Team Providers Care Pool Technician Name Role Phone No, Physician Primary Care Provider [phone] Jese Ashley MD Primary Care Provider [phone] Simón Broderick MD Primary Care Provider [phone] Encounter Details Date Type Department Care Team (Latest Contact Info) Description 07/23/2015 Orders Only [facility] ProviderFernando MD [address] [place] [address] Social History Tobacco Use Types Packs/Day Years Used Date Smoking Tobacco: Never Assessed Comments Unknown Sex and Gender Information Value Date Recorded Sex Assigned at Not on file Legal Sex Female 7:59 PM ESCROW CLOSER Gender Identity Not on file Sexual Orientation [...] COVID: Suspected 08/29/2022 08/29/2022 08/29/2022 2:17 PM ESCROW CLOSER documented as of this encounter Care Teams Pool Technician Relationship Specialty Start Date End Date No, Physician PCP - General 05/07/19 09/01/20 Jese Ashley MD [address] [address] PCP - General Internal Medicine 09/02/20 08/30/22 Simón Broderick MD [address] [place] [address] PCP - General Internal Medicine 08/31/22 documented as of this encounter
--- OUTSIDE RECORDS SUMMARY | 2025-01-01 15:21 | XMS_ITS | Encounter Summary ---
Author Organization [facility] Facility Care Team Providers Care Signal Apprentice Name Role Phone No, Physician Primary Care Provider [phone] Jese Ashley MD Primary Care Provider [phone] Simón Broderick MD Primary Care Provider [phone] Encounter Details Date Type Department Care Team (Latest Contact Info) Description 07/27/2015 Orders Only [facility]INCON[facility] Provider, MD Fernando [address] [place] [address] Social History Tobacco Use Types Packs/Day Years Used Date Smoking Tobacco: Never Assessed Comments Unknown Sex and Gender Information Value Date Recorded Sex Assigned at Not on file Legal Sex Female 7:59 PM BRAZING MACHINE TENDER Gender Identity Not on file Sexual Orientation [...] COVID: Suspected 08/29/2022 08/29/2022 08/29/2022 2:17 PM BRAZING MACHINE TENDER documented as of this encounter Care Teams Signal Apprentice Relationship Specialty Start Date End Date No, Physician PCP - General 05/07/19 09/01/20 Jese Ashley MD [address] [address] PCP - General Internal Medicine 09/02/20 08/30/22 Simón Broderick MD [address] [place] [address] PCP - General Internal Medicine 08/31/22 documented as of this encounter
[2025-01-01 15:36] LABS: HIV 1/2 Ab P24 Ag Result Negative (Negative)
[2025-01-01 16:03] LABS: Hepatitis B Surface Antigen Negative (Negative)
[2025-01-02 14:58] LABS: RPR Screen NON-REACTIVE (NON-REACTIVE)
[2025-01-02 16:48] LABS: CMV IgG Antibody <0.60 U/mL; Varicella IgG Antibody 9.53 S/CO
== END 2025-01-01 14:03 | disposition home or self-care (01) ==
PROVIDERS: PCP Internal Medicine; Visit Provider Student in an Organized Health Care Education/Training Program
DX: R30.9 Painful micturition, unspecified (principal); N91.2 Amenorrhea, unspecified; Z11.4 Encounter for screening for human immunodeficiency virus [HIV]
CPT/HCPCS: 36415; 84702; 85027; 85660; 86592; 86644; 86703; 86747; 86762; 86787; 86850; 86900; 86901; 87086; 87340; G0432

== ENCOUNTER 2025-02-12 10:08 | Emergency (ER) | payer MEDICARE, MEDICAID, SELFPAY ==
[2025-02-12] VITALS (21 sets, daily range): BP systolic 112–128; BP diastolic 61–83; PULSE 85; RESP 16; TEMP 36.6; O2SAT 98–100
--- NOTE | ~2025-02-12 | US_ITS ---
EXAMINATION: US abdomen complete DATE: 02/12/2025 14:12 INDICATION: Abdominal trauma TECHNIQUE: Multiple grayscale and Doppler ultrasound images of the abdomen were obtained. COMPARISON: None FINDINGS: The pancreatic head and body are normal in appearance. The pancreatic tail is not visualized. Visual ized abdominal is normal measuring up to 2.1 cm in AP diameter in the mid aorta and 1.6 cm in the mid abdominal aorta. The visualized proximal inferior vena cava is normal. Liver has normal echogenicity and contour, with a smooth surface. No liver lesion identified. No intrahepatic biliary duct dilatio n suspected. Portal venous flow was seen in the hepatopetal, normal direction and has normal Doppler waveform. Gallbladder is nonvisualized and reportedly surgically absent. Common bile duct measures 4 mm diameter which is normal. There is normal renal contour and echogenicity bilaterally. The right ki dney measures 11.3 x 5.1 x 5.3 cm and the left 10.5 x 4.5 x 4.0 cm. There are no focal renal lesions identified. Mild right hydronephrosis. Normal spleen measuring 10.2 cm in maximal length. IMPRESSION: 1. Status post cholecystectomy. 2. Mild right hydronephrosis which could be related to mass effect from the gravid uterus which has b een separately imaged. Reviewed, dictated and finalized at location A. IMPRESSION: 1. Status post cholecystectomy. 2. Mild right hydronephrosis which could be related to mass effect from the gra vid uterus which has been separately imaged.
--- NOTE | ~2025-02-12 | US_ITS ---
EXAMINATION: US OB limited DATE: 02/12/2025 14:13 INDICATION: Abdominal trauma post fall down stairs during early second trimester TECHNIQUE: Real-time ultrasound of the pelvis was performed. The interpreting radiologist was not pre sent for the study. COMPARISON: 02/12/2025 FINDINGS: There is a single living fetus in transverse lie. The placenta is posterior. heart rate is 159 beats per minute (bpm). The amniotic fluid volume is subjectively normal. Normal cervical length of 3.3 cm. IMPRESSION: 1. Single living fetus in transverse lie with heart rate of 159 bpm. 2. Normal amniotic fluid index of 3.3 cm. Reviewed, dictated and finalized at location A.
--- NOTE | ~2025-02-12 | CT_ITS ---
Non-contrast Head CT History: Status post fall Technique: Axial non-contrast imaging of the brain was performed. Dose reduction technique was used on this scan by utilizing automated exposure control and iterative reconstruction technique. The dose -length product (DLP) was 529.67 mGy-cm. Findings: There is no evidence of intracranial hemorrhage, mass lesion, or acute infarct. Brain par enchyma appears normal. The ventricles and subarachnoid spaces are normal in size. The calvarium ap pears normal. The visualized paranasal sinuses and mastoid air cells are clear. Impression: No significant abnormality seen. Reviewed, dictated and finalized at location . Impression: No significant abnormality seen.
--- NOTE | ~2025-02-12 | CT_ITS ---
EXAMINATION: CT cervical spine wo con DATE: 02/12/2025 11:42 INDICATION: Fall with head injury TECHNIQUE: Computed tomography (CT) of the cervical spine was performed without intravenous contrast. Automated exposure control and iterative reconstruction technique were employed. The dose-length pro duct was 169.13 mGy-cm. COMPARISON: None FINDINGS: Slight reversal of the normal cervical lordosis. 12 degrees cervicothoracic dextrocurvature. Vertebra l body heights are normal. No acute fracture. Disc heights are normal. 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 Disc bulge contributing to mild central canal stenosis a t C4-C5. No neural foraminal stenosis. Minimal biapical pleural-parenchymal scarring. Cervical soft t issues are unremarkable. IMPRESSION: 1. Minimal cervical spondylosis with slight reversal of the normal cervical lordosis which could be p ositional or due to muscle spasm. No acute osseous abnormality. Reviewed, dictated and finalized at location A. IMPRESSION: 1. Minimal cervical spondylosis with slight reversal of the normal cervical tracie dosis which could be positional or due to muscle spasm. No acute osseous abnorm ality.
--- NOTE | 2025-02-12 11:15 | ED.FALL ---
HPI - Fall General Chief Complaint: Fall Stated Complaint: abd pain s/p fall, 14 wks Time Seen by Provider: 02/12/25 11:05 Source: patient and EMS Mode of arrival: EMS Limitations: no limitations History of Present Illness HPI Narrative: PATIENT 34 YEARS OLD FEMALE MISSED 5-6 STEPS GOING DOWN STAIRS, HARD STEPS, COMPLAINING OF RIGHT FOREHEAD PAIN, NECK PAIN, BACK PAIN, ABDOMINAL PAIN. NO LOSS OF CONSCIOUSNESS, PATIENT IS 14 WEEKS Related Data Home Medications ?Medication ?Instructions ?Recorded ?Confirmed ?Last Taken ?Type dorzolamide 2 % eye drops drp EACH EYE 03/29/23 01/22/25 Unknown History Allergies Allergy/AdvReac Type Severity Reaction Status Date / Time No Known Allergies Allergy Verified 02/12/25 10:26 Review of Systems Review of Systems: All systems reviewed & are unremarkable except as noted in HPI and below PMFSH Past Medical History Medical History Suppression of menses Abnormal Pap smear of cervix Vision impairment Surgical History Surgical History Delivery by section (08/08/24) H/O breast augmentation Hx of cholecystectomy Social History Social History Smoking status: Never smoker Alcohol intake: current Alcohol use details: occasional Substance use: never Do You Feel Safe in your Home?: Yes Lack of Transportation: No Lack of Food: Never True Current Housing: I Have Housing Concerned About Future Housing: No Difficulty Paying Gas/Electric Bills: No Difficulty Paying for Meds: No Currently Unemployed: No Education: Associate Degree Difficulty w/ Childcare or Family Care: No Living arrangements: with family Occupation/Education: unemployed Gender identity (if verbalized by the patient): Female Sexual Orientation (if Verbalized by the Patient): Straight or Heterosexual Spiritual care concerns: No Exam Narrative: GENERAL APPEARANCE: WELL-DEVELOPED, WELL-NOURISHED SKIN: NORMAL COLOR HEAD: NORMOCEPHALIC, NONTRAUMATIC EYES: CLEAR CONJUNCTIVA ENT: OROPHARYNX NORMAL, EARS NORMAL, NOSE NORMAL NECK: C-COLLAR HOME CHEST AND RESPIRATORY: AIRWAY PATENT, NO RESPIRATORY DISTRESS, NO ACCESSORY MUSCLE USE HEART: REGULAR RATE/RHYTHM ABDOMEN: SOFT, DIFFUSE TENDERNESS MAINLY LOWER ABDOMEN BILATERALLY, NO BRUISES, NO ORGANOMEGALY, QUIET BOWEL SOUNDS VASCULAR: NORMAL PERIPHERAL PULSES, NORMAL CAPILLARY REFILL. MUSCULOSKELETAL: DIFFUSE TENDERNESS OF THE BACK MAINLY THORACIC AND LUMBAR SPINE NEUROLOGIC: ALERT AND ORIENTED ?3, OPERATIONS RESEARCH ANALYST IS NORMAL TESTED, NO GROSS MOTOR DEFICIT Course Consultations Consultation #1: IT IS OKAY TO GET X-RAY OF THE THORACIC AND LUMBAR SPINE, PELVIC ULTRASOUND, IN THE RESULT IS OKAY PATIENT CAN GO HOME. Date: 02/12/25 Time: 13:10 Vital Signs Vital signs: Vital Signs Temperature 36.6 C 02/12/25 10:18 Pulse Rate 85 02/12/25 10:18 Respiratory Rate 16 02/12/25 10:18 Blood Pressure 113/73 02/12/25 10:18 Pulse Oximetry 100 02/12/25 10:18 Oxygen Delivery Room Air 02/12/25 10:18 Temperature 36.6 C 02/12/25 10:18 Pulse Rate 85 02/12/25 10:18 Respiratory Rate 16 02/12/25 10:18 Blood Pressure 119/78 02/12/25 13:16 Pulse Oximetry 98 02/12/25 12:16 Oxygen Delivery Room Air 02/12/25 10:18 MDM - Fall MDM Narrative Medical decision making narrative: DIFFERENTIAL DIAGNOSIS INCLUDE BLUNT ABDOMINAL TRAUMA IN A WOMAN NECK FRACTURE, BACK FRACTURE, CT HEAD AND CT CERVICAL SPINE WITHOUT CONTRAST SHOWED NO SIGNIFICANT ABNORMALITIES HEART TONE SHOWED 154 BEATS PER MINUTE PATIENT DECLINED X-RAY OF THE THORACIC AND LUMBAR SPINE ABDOMINAL AND PELVIC ULTRASOUND SHOWED MILD HYDRONEPHROSIS, SINGLE LIVING FETUS WITH HEART RATE 159, NORMAL AMNIOTIC FLUID INDEX OF 3.3 CM. DISCHARGE, TYLENOL NEEDED, FOLLOW-UP WITH OBGYN IN 2-3 DAYS. THE PT WAS DISCHARGED TO HOME.THE PT,S CONDITION UPON DISCHARGE WAS FAIR,EDUCATION WAS PROVIDED TO THE PT IN REFERENCE TO THE FINAL IMPRESSION,DISCHARGE STUDY RESULTS,TREATMENT,PROGNOSIS AND NEED FOR FOLLOW UP . Differential Diagnosis Differential diagnosis: Likely other ( ABOVE) Critical Care Time Critical Care Time Critical Care Time: No Discharge Plan Discharge Clinical Impression: Fall, Contusion Patient Disposition: Home Condition: Stable Patient Language: Persian Prescriptions: No Action dorzolamide 2 % drops EACH EYE Classic 28 mg iron- 800 mcg tablet 1 tablet PO DAILY Qty: 90 3RF Follow-up/Referrals: Davie,Simón Boyd MD [Primary Care Provider] -
--- OUTSIDE RECORDS SUMMARY | 2025-02-12 11:47 | XMS_ITS | Clinical Summary ---
Author Organization [facility] Address [address] [place] [address] Care Team Providers Care Baccarat Manager Name Role Phone Simón Broderick MD Primary Care Provider [phone] Source Comments [facility],non-owned Affiliates and Associated Physician Practices is amultiple site organization consisting of ambulatory clinics and hospital sitesin [place], [place], [place] and [place]. This disclosure is being madepursuant to the Care Everywhere program and may not contain all information available regarding this patient. Last updated 18.[facility] Allergies No known active allergies Medications * Be aware that medications may not be up to date on this document. Alwaysverify current medications with the patient. Vit-DSS-Fe Fum-FA ( vitamin with iron) tablet [...] complications. She was seen at the [facility] who recommended urgent MRI/MRV and LP. Case [...] IV iron replacement if JOAN confirmed. Immunizations Immunization Administration Dates Next Due DTaP VACCINE IM (6wk-6yrs) 07/06/1997 HEP A PEDS 2 DOSE 07/25/2009,05/30/2003 HEP B VACCINE, PED/ADOL 08/05/2003,05/30/2003, HIB-HAEMOPHILUS INFLUENZAE B CONJUGATE VACCINE 07/01/1993,1992,1992,04/16 Human Papilloma Virus Alla valent Vaccine 07/25/2009 MENINGOCOCCAL ACWY (MCV4P) VAC IM 07/25/2009 MMR 07/06/1997,07/01/1993 POLIO OPV 07/06/1997, 4,1992,10/17,1992 [...] medical care, and heating? Patient declined [facility] - Occupational Stress Questionnaire Answer Date [...] place to sleep or slept in a halfway (including now)? No 06/20/2024 Comments No Sex and Gender Information Value Date Recorded Sex Assigned at Not on file Legal Sex Female 9:58 AM CDT Gender Identity Not on file Sexual Orientation [...] 06/22/2024 1:00 PM CDT Plan of Treatment Upcoming Encounters Date Type Department Care Team (Late st Contact Info) Description 03/06/2025 9:00 AM CDT Appointment [facility] [address] [place] [id number] 03/06/2025 9:45 AM CDT Appointment [facility] [address] [place] [id number] Health Maintenance Due Date Last Done Comments PAP SMEAR 1992 HIV SCREENING 02/17/2007 HPV VACCINE (2 - 3-dose series) 08/22/2009 07/25/2009 HEPATITIS C SCREENING 02/13/2010 COVID-19 VACCINE ( season) 2024 DEPRESSION SCREENING 10/03/2024 MEDICARE AWV CALENDAR YEAR 2024 INFLUENZA VACCINE (Season Ended) 2025 DTAP/TDAP/TD VACCINES (5 - Td or Tdap) [...] on patient's age to complete this topic Procedures Procedure Name Priority Date/Time Associated Diagnosis Comments CULTURE STREP B Routine 06/20/2024 2:08 PM CDT from Last 3 Months or Most Recently Relevant to Health Maintenance Results * CULTURE STREP B (06/20/2024 2:08 PM CDT) Culture Strep B Negative for beta-hemolytic Streptococcus Group B YEMI 06/23/2024 4:08 PM CDT [facility] MICROBIOLOGY Microbiology MISCELLANEOUS SAMPLES / Unknown Collection / Unknown 06/20/2024 2:08 PM CDT 06/20/2024 2:24 PM CDT us Paola Beth MD LAB - MICROBIOLOGY ORDERABL ES Final Result [facility]CRO[facility]OLOG[facility] [address] [place] [address], [facility] [phone] from Last 3 Months or Most Recently Relevant to Health Maintenance Insurance MEDICAID - [place] [facility] MANAGED MEDICARE ADV [facility] Advance Directives * Full Code (Latest Code Status on File) Date Activated Date Inactivated Comments 06/20/2024 1:13 PM 06/22/2024 7:41 PM Care Teams Baccarat Manager Relationship Specialty Start Date End Date Simón Broderick MD PCP - General Internal Medicine 01/21/21
--- OUTSIDE RECORDS SUMMARY | 2025-02-12 11:47 | XMS_ITS | CONTINUITY OF CARE DOCUMENT ---
Author Name alise carrero Address Unknown Organization [facility] Address [address] [place] [address] Phone [phone] Care Team Providers Care Liquor Bridge Operator Helper Name Role Phone Sae Clayton MD Unavailable [phone] Sae Clayton MD Unavailable [phone] INSURANCE PROVIDERS Payer name Policy type / Coverage type [place] [employer] ID [employer] MEDICAID (2) Medicaid [id number]
[2025-02-12] MEDS: ONDANSETRON INJ 4 MG/2 ML VIAL IV PUSH (11:49)
[2025-02-12] MEDS: MORPHINE SULFATE (*CRX) 4 MG/ML INJ IV PUSH (11:50)
--- NOTE | 2025-02-12 13:43 | PC.NURSE ---
ultrasound in patients room at this time
== END 2025-02-12 16:18 | disposition home or self-care (01) ==
PROVIDERS: Emergency Provider Emergency Medicine; PCP Internal Medicine
DX: O9A.212 Injury, poisoning and certain other consequences of external causes complicating pregnancy, second trimester (principal); T14.8XXA Other injury of unspecified body region, initial encounter; W10.9XXA Fall (on) (from) unspecified stairs and steps, initial encounter; Z3A.14 14 weeks gestation of pregnancy
CPT/HCPCS: 70450; 72125; 76700; 76815; 96374; 96375; 99284; J2270; J2405